=== PATIENT | female | born 1950 | race Hispanic/Latino ===

== ENCOUNTER 2017-01-16 10:30 | Inpatient (IN) | payer MEDICARE ==
[2017-01-17] MEDS ORDERED: Midazolam HCl 5 mg/5 ml Vial ONE (06:29)
[2017-01-17] MEDS ORDERED: Fentanyl 100 MCG/2 ML VIAL ONE (06:29)
[2017-01-17] MEDS ORDERED: Dexmedetomidine 200 MCG/2 ML VIAL ONE (06:30)
[2017-01-17] MEDS ORDERED: Vecuronium 10 MG VIAL ONE ×2 (06:30→07:46)
[2017-01-17] MEDS ORDERED: Heparin 10,000 UNITS/1 ML VIAL 30,000 UNITS in Sodium Chloride 0.9% 1,000 ML FS SCH (07:00)
[2017-01-17] MEDS ORDERED: PHENYLEPHRINE-NS 100 MCG/ML 10 ML SYRINGE ONE (07:46)
[2017-01-17] MEDS ORDERED: Ondansetron HCl/PF 4 MG/2 ML Vial ONE (07:46)
[2017-01-17] MEDS ORDERED: Lidocaine 2% PF 10 ML AMP (For Epidural Use) ONE (07:46)
[2017-01-17] MEDS ORDERED: ePHEDrine/0.9% NaCl/PF SYRINGE 50 mg/10 ml ONE (07:46)
[2017-01-17] MEDS ORDERED: Propofol 200 MG/20 ML VIAL ONE (07:46)
[2017-01-17] MEDS ORDERED: Aminocaproic Acid 5 GM/20 ML VIAL ONE (08:18)
[2017-01-17] MEDS ORDERED: D5W ONE (08:18)
[2017-01-17] MEDS ORDERED: Papaverine 60 MG/2 ML VIAL ONE (08:18)
[2017-01-17] MEDS ORDERED: Mannitol 12.5 GM/50 ML ONE (08:18)
[2017-01-17] MEDS ORDERED: Calcium Chloride 1 GM/10 ML Abboject SYRINGE ONE (08:18)
[2017-01-17] MEDS ORDERED: Potassium Chloride 60 MEQ/30 ML VIAL ONE (08:18)
[2017-01-17] MEDS ORDERED: DOPAMINE HCL ONE (08:18)
[2017-01-17] MEDS ORDERED: Heparin 30,000 units/30 ml VIAL ONE (08:18)
[2017-01-17] MEDS ORDERED: Nitroglycerin 50 MG/250 ML BOT ONE (08:18)
[2017-01-17] MEDS ORDERED: Thrombin 5000 UNITS/5 ML VIAL ONE (08:18)
[2017-01-17] MEDS ORDERED: Lidocaine 2% PF 100 mg/5 ml Syringe ONE (08:18)
[2017-01-17] MEDS ORDERED: Magnesium 5 GM/10 ML VIAL ONE (08:18)
[2017-01-17] MEDS ORDERED: Sodium Bicarb 50 MEQ/50 ML VIAL ONE (08:18)
[2017-01-17] MEDS ORDERED: Cardioplegic Soln 1,000 ML BAG ONE (08:18)
[2017-01-17] MEDS ORDERED: Protamine Sulfate 50 MG/5 ML VIAL ONE (08:18)
[2017-01-17] MEDS ORDERED: Heparin 5,000 UNITS/ML VIAL ONE (08:18)
[2017-01-17] MEDS ORDERED: Nitroglycerin 50 MG/250 ML BOT 250 ML IVPB PRN (12:24)
[2017-01-17] MEDS ORDERED: Mag-Al 1200 mg/1200 mg/30 ML UDCUP PO PRN (12:24)
[2017-01-17] MEDS ORDERED: Bisacodyl 10 MG SUPP PR PRN (12:24)
[2017-01-17] MEDS ORDERED: DOPamine 400 MG/D5W 250 ML 250 ML IVPB PRN (12:24)
[2017-01-17] MEDS ORDERED: Morphine Sulfate 2 MG/ML SYRINGE SLOW IVP PRN (12:24)
[2017-01-17] MEDS ORDERED: Ondansetron HCl/PF 4 MG/2 ML Vial IVP PRN (12:24)
[2017-01-17] MEDS ORDERED: HYDROcodone/Acetaminophen 5/325 mg Tablet PO PRN (12:24)
[2017-01-17] MEDS ORDERED: Promethazine HCl 25 MG/ML VIAL IM PRN (12:24)
[2017-01-17] MEDS ORDERED: Potassium Chloride 20 MEQ/100 ML PREMIX BAG IVPB PRN (12:24)
[2017-01-17] MEDS ORDERED: Post-Op Insulin Drip Protocol IVPB ONE (12:24)
[2017-01-17] MEDS ORDERED: Hetastarch 6% 500 ML 500 ML IVPB PRN (12:24)
[2017-01-17] MEDS ORDERED: Fentanyl 100 MCG/2 ML VIAL SLOW IVP PRN (12:24)
[2017-01-17] MEDS ORDERED: Acetaminophen 325 MG TAB PO PRN (12:24)
[2017-01-17] MEDS ORDERED: Bisacodyl 5 MG TAB PO PRN (12:24)
[2017-01-17] MEDS ORDERED: Norepinephrine 8 MG/0.9% NS 250 ML IVPB PRN (12:24)
[2017-01-17] MEDS ORDERED: Guaifenesin DM 100-10/5 ML UDCUP PO PRN (12:24)
[2017-01-17] MEDS ORDERED: Dextrose 5% in Water 1,000 ML IV PRN (12:52)
[2017-01-17] MEDS ORDERED: Insulin Regular 300 UNITS/3 ML VIAL SC PRN (12:52)
[2017-01-17] MEDS ORDERED: Dextrose 50% Abboject 50 ML SYRINGE SLOW IVP PRN (12:52)
--- NOTE | 2017-01-17 13:06 | OP ---
DATE OF PROCEDURE: 01/17/2017 PREOPERATIVE DIAGNOSES: 1. Coronary artery disease. 2. Paroxysmal atrial fibrillation. PROCEDURE: Coronary bypass graft x5, left internal mammary artery as a sequential graft to the LAD, diagonal, saphenous vein graft to a 2 mm ramus, 1.5 mm left PDA, 1.25 mm distal circumflex, epicard ial maze and left atrial appendage ligation. SURGEON: Dr. Taz Webb SENIOR EXECUTIVE COMPENSATION ANALYST: Dr. Juan Jose Bowie TRANSFUSION: None. PROCEDURE IN DETAIL: After adequate anesthesia had been obtained, I performed a median sternotomy e ntering the right pleura with a saw. Dr. Bowie began an endovascular vein harvest of the left great er saphenous vein, but converted this to an open procedure. Following left internal mammary artery harvested the patient was heparinized, the mammary divided distally and passed posterior to the thym us gland. It was a nice quality mammary artery. Following aortic cannulation above the pericardial reflection due to very short aorta the right atrium was cannulated and cardiopulmonary bypass was i nstituted. Vessels were inspected for grafting. The aorta was cross-clamped and a liter of del Nid o cardioplegic solution given. Using the [employer] maze device, the right superior and inferior pul monary vein and left-sided pulmonary veins were each treated on 2 occasions. Base of the left atria l appendage treated once and then the left atrium oversewn with a double layer 4-0 Prolene suture. Following this, the left PDA was opened and anastomosis with saphenous vein completed. The next was the ramus and finally the distal circumflex. The MARROQUIN was then anastomosed in a [id number] fashi on to a 1-1.2-5 mm diagonal. The LAD at the origin of this diagonal was heavily calcified or would have been a better target. Distally, the LAD was opened and an end-to-side sequential anastomosis c ompleted. There was no bleeding at this point and the cross-clamp was removed and the partial occlu ding clamp placed, and the left PDA vein graft and ramus graft were anastomosed to the aortic root, marked with rings. To the site of the left PDA vein graft the distal circumflex vein graft was anas tomosed at about the mid a right atrial level. Following this, vessels were inspected for bleeding and there was brisk bleeding at this point from the MARROQUIN to the diagonal anastomosis. The aorta was recross-clamped, 300 mL of cardioplegic solution was given and 7-0 Prolene suture was used to repai r the leak in the distal aspect of the anastomosis between the MARROQUIN and the diagonal. Following com pletion of this, the crossclamp was removed. Temporary atrial and ventricular pacing wires placed. The patient was weaned from cardiopulmonary bypass, cannulas were removed, and protamine given syst emically. A left femoral arterial line was placed. Following good hemostasis, mediastinal and bila teral chest drains were placed. The sternum was reapproximated with #7 interrupted wire and subcuta neous tissue and skin were closed in layers.
[2017-01-17 13:18] LABS: PTT 29.3 SEC (22.9-36.1); Prothrombin Time 16.2 SEC (12.0-14.7)
[2017-01-17 13:20] LABS: #Eosinphils 0.1 thou/uL (0.0-0.7); #Lymphocytes 0.9 thou/uL (1.20-3.40); #Neutrophils 16.9 thou/uL (1.40-6.50); %Basophils 0.1 % (0.0-1.0); %Eosinophils 0.3 % (0.0-10.0); %Lymphocytes 4.9 % (21.0-51.0); %Monocytes 5.3 % (0.0-10.0); Hematocrit 33.4 % (36.0-47.0); Mean Platelet Volume 9.9 fL (7.4-10.4); Red Blood Cell (RBC) Count 3.69 mill/uL (4.20-5.40); White Blood Cell (WBC) Count 18.9 thou/uL (4.8-10.8)
[2017-01-17 13:33] LABS: Mechanical Tidal Volume 550 ml; Mode SIMV.PSV; Modified Allen's Test NOT DONE; Oxyhemoglobin 95.4 % (94.0-97.0); Pressure Support 10 cmH2O; Sodium 141 mmol/L (135-148); Vent YES
[2017-01-17] MEDS: Sodium Chloride 0.9% 1,000 ML IV SCH (13:38)
[2017-01-17 13:40] LABS: Anion Gap 12 mmol/L (10-20); BUN (Urea Nitrogen) 17 mg/dL (9.8-20.1); Calc. Creatinine Clearance 83 mL/min (70-130); Calcium 8.6 mg/dL (7.8-10.44); Carbon Dioxide 22 mmol/L (23-31); Chloride 107 mmol/L (98-107); Estimated GFR-MDRD 57
--- NOTE | 2017-01-17 13:52 | RAD ---
RADIOGRAPH CHEST 1 VIEW: Date: 01/17/2017 Time: 1:07 p.m. HISTORY: A 66-year-old female status post open heart surgery. COMPARISON: 01/16/2017 FINDINGS: There are new sternotomy wires. An endotracheal tube has been placed, with the distal tip overlying the thoracic trachea. A left basilar chest tube projects inferior to the left hemidiaphragmatic sh adow. A right-sided central vascular catheter takes two loops overlying the right supraclavicular r egion, before descending a short distance, with the distal tip overlying the right upper mediastinum . Lung volumes are low. This is a supine image, which would be insensitive for pneumothorax detect ion. No consolidation or pulmonary edema identified. These are all new findings, compared to the p rior study. There is a vertically oriented midline catheter just to the left of the trachea, with t he distal tip overlying the mid portion of the cardiac shadow, approximately 4.5 to 5.5 cm superior to the expected location of the esophagogastric junction. This may be an NG tube. IMPRESSION: 1. Immediately status post open heart surgery with life support lines as mentioned above. 2. The right-sided central vascular catheter is looped over the supraclavicular region. 3. Questionable nasogastric tube distal tip at the lower esophagus. JN [] POS: OFF
[2017-01-17 18:57] LABS: Oxyhemoglobin 95.4 % (94.0-97.0); Sodium 142 mmol/L (135-148); Spontaneous Rate 16 min; Vent YES
[2017-01-17 18:58] LABS: Mode CPAP; PIP 19 cmH2O; Pressure Support 10 cmH2O
[2017-01-17 19:04] LABS: Hematocrit 35.5 % (36.0-47.0)
[2017-01-17] MEDS: Fentanyl 100 MCG/2 ML VIAL SLOW IVP PRN ×3 (19:18→23:06)
[2017-01-17] MEDS: Atorvastatin Calcium 20 MG TAB PO SCH (20:19)
[2017-01-17] MEDS: Famotidine/PF 20 mg/2ml Vial SLOW IVP SCH (20:56)
[2017-01-18] MEDS: Fentanyl 100 MCG/2 ML VIAL SLOW IVP PRN ×4 (01:08→18:19)
[2017-01-18] MEDS: Sodium Chloride 0.9% 1,000 ML IV SCH ×2 (03:09→18:15)
[2017-01-18 04:40] LABS: #Lymphocytes 0.6 thou/uL (1.20-3.40); #Monocytes 0.8 thou/uL (0.11-0.59); #Neutrophils 10.7 thou/uL (1.40-6.50); %Basophils 0.2 % (0.0-1.0); %Lymphocytes 5.3 % (21.0-51.0); %Monocytes 6.6 % (0.0-10.0); Hematocrit 29.6 % (36.0-47.0); Mean Platelet Volume 10.1 fL (7.4-10.4); Red Blood Cell (RBC) Count 3.19 mill/uL (4.20-5.40); White Blood Cell (WBC) Count 12.2 thou/uL (4.8-10.8)
[2017-01-18 05:11] LABS: Anion Gap 13 mmol/L (10-20); BUN (Urea Nitrogen) 15 mg/dL (9.8-20.1); Calc. Creatinine Clearance 66 mL/min (70-130); Calcium 8.5 mg/dL (7.8-10.44); Carbon Dioxide 22 mmol/L (23-31); Chloride 110 mmol/L (98-107); Estimated GFR-MDRD 46
[2017-01-18] MEDS: HYDROcodone/Acetaminophen 5/325 mg Tablet PO PRN ×4 (06:11→20:38)
--- NOTE | 2017-01-18 06:15 | EKG ---
Test Reason : POST CSBG Blood Pressure : / mmHG Vent. Rate : 098 BPM Atrial Rate : 098 BPM P-R Int : 146 ms QRS Dur : 092 ms QT Int : 374 ms P-R-T Axes : 046 058 058 degrees QTc Int : 477 ms Normal sinus rhythm ST abnormality, possible digitalis effect , can not R/O ischemic change Abnormal ECG When compared with ECG of 16-JAN-2017 11:47, (Unconfirmed) Vent. rate has increased BY 35 BPM QT has lengthened Confirmed by FIFI LOPEZ ([id number]) on 01/18/2017 6:15:14 AM Referred By: PAN Confirmed By:FIFI LOPEZ
--- NOTE | 2017-01-18 08:14 | RAD ---
PORTABLE CHEST ONE VIEW: Date: 01-18-17 Time: 4:08 a.m. History: Post open heart surgery. Comparison: Previous day. FINDINGS/IMPRESSION: Endotracheal and nasogastric tubes have been removed in the interim. Under lines and tubes are uncha nged in position. The right sided central venous catheter is looped over the subclavian region and i s unchanged in position. There are mild atelectatic changes in the lung bases. No pneumothoraces are seen. The heart size is stable. Changes of median sternotomy are again noted. POS: [facility]
[2017-01-18] MEDS ORDERED: FLU VACC TS2017-18 (>65YR) 0.5 ML SYRINGE IM ONE (09:00)
[2017-01-18] MEDS: Atorvastatin Calcium 20 MG TAB PO SCH ×2 (20:24→20:31)
[2017-01-18] MEDS: Famotidine/PF 20 mg/2ml Vial SLOW IVP SCH (20:24)
[2017-01-18] MEDS: Pravastatin Sodium 20 MG TAB PO SCH (21:14)
[2017-01-19] MEDS: HYDROcodone/Acetaminophen 5/325 mg Tablet PO PRN ×5 (04:02→22:23)
[2017-01-19] MEDS: Sodium Chloride 0.9% 1,000 ML IV SCH (04:03)
[2017-01-19 04:06] LABS: #Lymphocytes 1.1 thou/uL (1.20-3.40); #Monocytes 1.4 thou/uL (0.11-0.59); #Neutrophils 10.3 thou/uL (1.40-6.50); %Basophils 0.1 % (0.0-1.0); %Lymphocytes 8.8 % (21.0-51.0); %Monocytes 10.9 % (0.0-10.0); Hematocrit 25.7 % (36.0-47.0); Mean Platelet Volume 10.2 fL (7.4-10.4); Red Blood Cell (RBC) Count 2.77 mill/uL (4.20-5.40); White Blood Cell (WBC) Count 12.8 thou/uL (4.8-10.8)
[2017-01-19 04:22] LABS: Anion Gap 11 mmol/L (10-20); BUN (Urea Nitrogen) 23 mg/dL (9.8-20.1); Calc. Creatinine Clearance 58 mL/min (70-130); Calcium 8.5 mg/dL (7.8-10.44); Carbon Dioxide 24 mmol/L (23-31); Chloride 102 mmol/L (98-107); Estimated GFR-MDRD 38
[2017-01-19] MEDS ORDERED: Mineral Oil ENEMA PR PRN (06:34)
[2017-01-19] MEDS ORDERED: Guaifenesin DM 100-10/5 ML UDCUP PO PRN (06:34)
[2017-01-19] MEDS ORDERED: Nitroglycerin 0.4 MG TAB 1 EACH SL PRN (06:34)
[2017-01-19] MEDS ORDERED: Milk Of Magnesia 30 ML UDCUP PO PRN (06:34)
[2017-01-19] MEDS ORDERED: Bisacodyl 10 MG SUPP PR PRN (06:34)
[2017-01-19] MEDS ORDERED: Fentanyl 100 MCG/2 ML VIAL SLOW IVP PRN (06:34)
[2017-01-19] MEDS: Metoprolol Tartrate 25 MG TAB PO SCH ×2 (08:21→22:24)
[2017-01-19] MEDS: Famotidine 20 MG TAB PO SCH ×2 (08:21→22:16)
[2017-01-19] MEDS ORDERED: Aspirin 325 mg Enteric Coated Tablet PO SCH (09:00)
--- NOTE | 2017-01-19 10:14 | RAD ---
AP VIEW CHEST: HISTORY: Status post open heart surgery. DATE: 01/19/17. COMPARISON: Comparison is made to previous exam from 01/18/17. FINDINGS: AP view chest demonstrates uncoiling and removal of the previously visualized right subclavian centr al line. Sternotomy wires are seen. Left-sided chest tube is seen. Right-sided chest is also seen . IMPRESSION: Removal of knotted right subclavian central line. POS: [facility]
[2017-01-19] MEDS: Bisacodyl 5 MG TAB PO PRN (18:36)
[2017-01-19] MEDS: Pravastatin Sodium 20 MG TAB PO SCH (22:16)
[2017-01-20 05:41] LABS: #Lymphocytes 1.3 thou/uL (1.20-3.40); #Monocytes 1.1 thou/uL (0.11-0.59); %Basophils 0.2 % (0.0-1.0); %Eosinophils 0.3 % (0.0-10.0); %Monocytes 10.9 % (0.0-10.0); Mean Platelet Volume 10.1 fL (7.4-10.4); Red Blood Cell (RBC) Count 2.48 mill/uL (4.20-5.40); White Blood Cell (WBC) Count 10.4 thou/uL (4.8-10.8)
[2017-01-20 06:02] LABS: Anion Gap 11 mmol/L (10-20); BUN (Urea Nitrogen) 23 mg/dL (9.8-20.1); Calc. Creatinine Clearance 79 mL/min (70-130); Calcium 8.3 mg/dL (7.8-10.44); Carbon Dioxide 25 mmol/L (23-31); Chloride 98 mmol/L (98-107); Estimated GFR-MDRD 55
[2017-01-20] MEDS: HYDROcodone/Acetaminophen 5/325 mg Tablet PO PRN ×4 (07:57→20:34)
[2017-01-20] MEDS: Bisacodyl 5 MG TAB PO PRN (08:24)
[2017-01-20] MEDS: Famotidine 20 MG TAB PO SCH ×2 (08:25→20:33)
[2017-01-20] MEDS: Potassium Chloride 10 MEQ TAB PO SCH (08:25)
[2017-01-20] MEDS: Furosemide 40 MG TAB PO SCH ×2 (08:25→09:40)
[2017-01-20] MEDS ORDERED: Furosemide 40 MG TAB PO SCH ×2 (08:30→14:00)
[2017-01-20] MEDS: Metoprolol Tartrate 25 MG TAB PO SCH ×2 (09:40→20:33)
[2017-01-20] MEDS: Pravastatin Sodium 20 MG TAB PO SCH (20:33)
[2017-01-21 06:47] LABS: #Lymphocytes 1.2 thou/uL (1.20-3.40); #Monocytes 1.4 thou/uL (0.11-0.59); #Neutrophils 9.9 thou/uL (1.40-6.50); %Basophils 0.2 % (0.0-1.0); %Eosinophils 0.4 % (0.0-10.0); %Lymphocytes 9.6 % (21.0-51.0); %Monocytes 10.8 % (0.0-10.0); Mean Platelet Volume 10.3 fL (7.4-10.4); Red Blood Cell (RBC) Count 2.59 mill/uL (4.20-5.40); White Blood Cell (WBC) Count 12.5 thou/uL (4.8-10.8)
[2017-01-21 07:14] LABS: Anion Gap 11 mmol/L (10-20); BUN (Urea Nitrogen) 29 mg/dL (9.8-20.1); Calc. Creatinine Clearance 65 mL/min (70-130); Calcium 8.7 mg/dL (7.8-10.44); Carbon Dioxide 27 mmol/L (23-31); Chloride 96 mmol/L (98-107); Estimated GFR-MDRD 43
[2017-01-21] MEDS: HYDROcodone/Acetaminophen 5/325 mg Tablet PO PRN ×2 (07:19→20:35)
[2017-01-21] MEDS: Potassium Chloride 10 MEQ TAB PO SCH (08:00)
[2017-01-21] MEDS: Diltiazem HCl 125 MG, Admixture Fee 1 EACH in Sodium Chloride 0.9% 100 ML SLOW IVP SCH (08:29)
[2017-01-21] MEDS: Ondansetron HCl/PF 4 MG/2 ML Vial IVP PRN (11:28)
[2017-01-21] MEDS: Metoprolol Tartrate 25 MG TAB PO SCH ×2 (11:28→20:37)
[2017-01-21] MEDS: Famotidine 20 MG TAB PO SCH ×2 (11:28→20:38)
[2017-01-21] MEDS: Furosemide 40 MG TAB PO SCH (11:28)
[2017-01-21] MEDS ORDERED: Digoxin 0.5 MG/2 ML AMP SLOW IVP SCH (14:00)
--- NOTE | 2017-01-21 15:28 | CON ---
DATE OF CONSULTATION: 01/21/2017 DATE OF ADMISSION: 01/17/2017 CARDIOLOGY CONSULTATION INDICATION FOR CONSULTATION: A 66-year-old female, post bypass surgery has developed atrial fibrill ation with rapid ventricular response, and we were asked to see her for this. HISTORY OF PRESENT ILLNESS: This is a very unfortunate 66-year-old female who has had severe three- vessel coronary disease, has been seen in the past and treated by Dr. Quiroz. She underwent card iac catheterization last month and was found to have severe 3-vessel coronary artery disease. She u nderwent bypass surgery by Dr. Webb with 5-vessel bypass with MARROQUIN and sequential graft to the LAD diagonal from the left internal mammary artery. She also had saphenous vein graft to a ramus interm ediate branch, posterior descending artery, right coronary, and also distal circumflex. She also magana d the MAZE procedure and left atrial ligation during the procedure. She has done relatively well po stop and then developed atrial fibrillation with rapid ventricular response with heart rates in the 120s to 130s. She has anxiety and also felt that she had become somewhat anxious and most likely th is is just due to her atrial fibrillation. She is having some shortness of breath, but no pain asso ciated with this, she has her usual pain postoperatively. Prior to surgery, she had had episodes of atrial fibrillation for which she was on Eliquis and had also been treated by flecainide and had be en maintaining her sinus rhythm without any problem. She did undergo, I believe electrical cardiove rsion in the past. She also was taking Toprol as well as diltiazem prior to her surgical procedure for the atrial fibrillation. At this time, she remains in atrial fibrillation. She has been starte d on IV diltiazem and still has a heart rate in the 110s to 130s. We will need to further manage he r medications. PAST MEDICAL HISTORY: Significant for coronary artery disease as noted above with bypass surgery, a trial fibrillation. She had been on medications as well as anticoagulation with Eliquis. She also had history of hypertension. She has history of DVTs in the past. She has had a right carotid enda rterectomy. She has had a cholecystectomy. MEDICATIONS PRIOR TO ADMISSION: Included vitamin D3, pravastatin, Cardizem CD 240 mg a day, Nexium, flecainide 50 mg b.i.d., Toprol-XL 25 mg a half a tablet q.p.m. At this time, her medications incl ude p.r.n. medications as well as Pepcid, Lasix 40 mg a day. Pain medications in the form of hydroc odone/acetaminophen. She is on Lopressor 25 mg b.i.d. and Pravachol 20 mg at bedtime. ALLERGIES: She is allergic to NITROFURANTOIN and also states she is allergic to LIPITOR. FAMILY HISTORY: Noncontributory at this time. SOCIAL HISTORY: She is . She has children who are alive and well. She smoked in the past, but stopped many years ago, actually when she was very young. She has no history of alcohol use. REVIEW OF SYSTEMS: She had no new HEENT complaints. She had no visual changes, hearing loss, or ti nnitus. She does have false teeth. She has had some complaints of shortness of breath and I think she has some asthma. She actually notices some wheezing at times. She has a diagnosis of asthma in the past. She had no chest pain at this time and she did not notice palpitations, but did just fel t that she was anxious. ABDOMEN: She had no chronic nausea, vomiting or diarrhea. No complaint s such as dysuria, polyuria, or hematuria. MUSCULOSKELETAL: She has had no recent complaints. Johnie e discomfort at this time after saphenous vein graft retrieval. NEUROLOGIC: No history of seizures or syncope. PHYSICAL EXAMINATION: GENERAL: Reveals a well-developed, well-nourished female who is in no acute distress at this time. VITAL SIGNS: Blood pressure 98/59, heart rate in the 120s and is irregular, respiratory rate is any where between 12-18. She is afebrile. HEENT: Reveals the head to be normocephalic and atraumatic. She has a well healed surgical incisio n in the right carotid area. She has a very soft bruit there. Otherwise, there are no significant abnormality is noted. CHEST: She has decreased breath sounds throughout with bilateral wheezing. CARDIOVASCULAR: She has an irregularly irregular rhythm. There was no gross murmurs noted. She is tachycardic. ABDOMEN: Shows morbid obesity with positive bowel sounds. EXTREMITIES: Showed no clubbing or cyanosis. She does have minimal edema bilaterally. Pedal pulse s were decreased. NEUROLOGIC: The patient appears to be intact. She has no evidence of focal motor deficits. She magana s normal strength and tone. SKIN: Warm and dry. IMAGING: Her EKG shows atrial fibrillation with rapid ventricular response, but no acute ST segment changes were noted on the monitoring system. LABORATORY DATA: Shows creatinine of 1.25, potassium is 5.0. WBC is 12.5. Hemoglobin is 7.8. IMPRESSION AND PLAN: 1. Atrial fibrillation with rapid ventricular response, postoperative from bypass surgery. We will need to control the heart rate. She is on IV diltiazem. I will add digoxin and she is also on bet a-blockers. We may need to start some other oral antiarrhythmics such as sotalol and I would not wa nt to give her flecainide again due to history of coronary artery disease as well as her renal insuf ficiency. Will need to like to watch sotalol also with her mild renal insufficiency. We could opt to give her amiodarone or Multaq, but we will try to control the heart rate with diltiazem as well a s the digoxin at this time. 2. History of coronary artery disease and recent bypass surgery. She is still recovering and her i ncisions are all healing at this time and see the notes above for the grafts. 3. History of hypertension. This is under good control at this time. We will continue those medic ations at this time. 4. Bilateral wheezing. She may have underlying chronic obstructive pulmonary disease. We will nee d to consider nebulizer treatment. She is already getting some, I believe postoperatively. Will co ayah to monitor her today for better rate control. She may need to be placed back on her oral ant icoagulation. However, at this time she is taking aspirin and it is just the recent postop phase si nce she has had atrial ligation and with left atrial appendage ligation. She is actually at low ris k for any acute embolic phenomenon. Dr. Quiroz will resume her care when he returns tomorrow.
[2017-01-21] MEDS: Pravastatin Sodium 20 MG TAB PO SCH (20:36)
[2017-01-21] MEDS: Digoxin 0.5 MG/2 ML AMP SLOW IVP SCH (20:39)
[2017-01-21] MEDS: diphenhydrAMINE HCl 25 MG CAP PO PRN (21:40)
[2017-01-22] MEDS: Digoxin 0.5 MG/2 ML AMP SLOW IVP SCH (01:57)
[2017-01-22] MEDS: HYDROcodone/Acetaminophen 5/325 mg Tablet PO PRN ×4 (03:39→20:49)
[2017-01-22] MEDS: diphenhydrAMINE HCl 25 MG CAP PO PRN ×2 (03:43→20:49)
[2017-01-22] MEDS: Diltiazem HCl 125 MG, Admixture Fee 1 EACH in Sodium Chloride 0.9% 100 ML SLOW IVP SCH (05:47)
[2017-01-22 06:00] LABS: #Eosinphils 0.3 thou/uL (0.0-0.7); #Lymphocytes 1.4 thou/uL (1.20-3.40); #Monocytes 1.4 thou/uL (0.11-0.59); #Neutrophils 6.6 thou/uL (1.40-6.50); %Basophils 0.4 % (0.0-1.0); %Eosinophils 2.8 % (0.0-10.0); %Lymphocytes 14.9 % (21.0-51.0); %Monocytes 14.1 % (0.0-10.0); Hematocrit 23.6 % (36.0-47.0); Mean Platelet Volume 9.7 fL (7.4-10.4); Red Blood Cell (RBC) Count 2.54 mill/uL (4.20-5.40); White Blood Cell (WBC) Count 9.7 thou/uL (4.8-10.8)
[2017-01-22 06:13] LABS: Anion Gap 11 mmol/L (10-20); BUN (Urea Nitrogen) 29 mg/dL (9.8-20.1); Calc. Creatinine Clearance 67 mL/min (70-130); Calcium 8.8 mg/dL (7.8-10.44); Carbon Dioxide 30 mmol/L (23-31); Chloride 95 mmol/L (98-107); Estimated GFR-MDRD 44
[2017-01-22 08:24] LABS: Oxyhemoglobin 97.6 % (94.0-97.0); Sodium 139 mmol/L (135-148)
[2017-01-22 08:24] LABS: Oxyhemoglobin 97.8 % (94.0-97.0); Sodium 138 mmol/L (135-148)
[2017-01-22 08:24] LABS: Base Excess -2.6 mEq/L (0 (+/- 2.5)); O2 Content (venous) 10.4 VOL% (12.5-17.5); pH (venous) 7.296 (7.35-7.45)
[2017-01-22 08:24] LABS: Oxyhemoglobin 97.7 % (94.0-97.0); Sodium 140 mmol/L (135-148)
[2017-01-22 08:26] LABS: Oxyhemoglobin 97.4 % (94.0-97.0); Sodium 139 mmol/L (135-148)
[2017-01-22 08:27] LABS: Oxyhemoglobin 97.7 % (94.0-97.0); Sodium 138 mmol/L (135-148)
[2017-01-22 08:27] LABS: Oxyhemoglobin 97.7 % (94.0-97.0); Sodium 137 mmol/L (135-148)
[2017-01-22] MEDS: Digoxin 0.125 MG TAB PO SCH (08:40)
[2017-01-22] MEDS: Furosemide 40 MG TAB PO SCH (08:43)
[2017-01-22] MEDS: Famotidine 20 MG TAB PO SCH ×2 (08:43→20:48)
[2017-01-22] MEDS: Metoprolol Tartrate 25 MG TAB PO SCH ×2 (08:43→20:48)
[2017-01-22] MEDS: Enoxaparin Sodium 30 MG/0.3 ML SYRINGE SC SCH ×2 (08:44→20:48)
[2017-01-22 08:46] LABS: Mode OR ABG; Vent YES
[2017-01-22 08:47] LABS: Mode OR ABG; Vent YES
[2017-01-22 08:48] LABS: Mode OR ABG; Vent YES
[2017-01-22 08:49] LABS: Mode OR ABG; Vent YES
[2017-01-22 08:49] LABS: Mode OR ABG; Vent YES
[2017-01-22 08:50] LABS: Mode OR ABG; Vent YES
--- NOTE | 2017-01-22 16:13 | PDOC.CTH ---
<Sadie Delgado - Last Filed: 01/22/17 16:21> Cardiology Progress Note - Subjective The pt was seen and examined. No overnight events. No cardiac complaints. She has not exercised due to Afib with RVR since the procedure. She has not been wearing compression stockings for a few days according to the pt and family. She has had very small BM x1 since the procedure - Objective Vital Signs Temp Pulse Resp BP BP Pulse Ox 01/22/17 15:45 97.9 F 97 18 128/70 90 L 01/22/17 12:00 97.9 F 63 16 112/70 96 01/22/17 08:40 112 H 01/22/17 08:00 97.9 F 63 16 121/59 L 92 L Weight 213 lb 5 oz 01/21/17 01/22/17 01/23/17 06:59 06:59 06:59 Intake Total 1330 1750 Output Total 950 850 Balance 380 900 - Physical Examination General/Neuro: alert & oriented x3 Neck: no JVD present Lungs: CTA Heart: other: (Irregular) Abdomen: soft Extremities: other: (1+ non-pitting edema in her Lt ankle) - Telemetry Telemetry Rhythm: Afib 70-140s - Labs Result Diagrams: 01/22/17 05:12 01/22/17 05:12 - Assessment/Plan 1. S/p CABG x5 with MAZE and NICHOLAS ligation - on BBlocker, ASA, and Statin medication; 2. Afib with RVR - HR has been from 70-140s; on Diltiazem 5mg/h and Metoprolol; her Metoprolol was increased from 25mg BID to 37.5mg BID today by Dr. Webb 3. HTN - stable with current medication 4. Hx of DVT - on Lovenox BID; recommend to wear compression stockings for swelling MAR reviewed Review of Systems - Review of Systems Constitutional: reports: no symptoms reported EENTM: reports: no symptoms reported Respiratory: reports: no symptoms reported Cardiac (ROS): reports: no symptoms reported ABD/GI: reports: no symptoms reported : reports: no symptoms reported Musculoskeletal: reports: no symptoms reported Skin: reports: no symptoms reported <Kirill Velazco - Last Filed: 01/22/17 17:14> Cardiology Progress Note - Objective Vital Signs Temp Pulse Resp BP BP Pulse Ox 01/22/17 15:45 97.9 F 97 18 128/70 90 L 01/22/17 12:00 97.9 F 63 16 112/70 96 01/22/17 08:40 112 H 01/22/17 08:00 97.9 F 63 16 121/59 L 92 L Weight 213 lb 5 oz 01/21/17 01/22/17 01/23/17 06:59 06:59 06:59 Intake Total 1330 1750 Output Total 950 850 Balance 380 900 - Labs Result Diagrams: 01/22/17 05:12 01/22/17 05:12 - Assessment/Plan Pt. seen and eval. by me. She is still SOB and in Afib. The HR remains elevated at times. The betablocker was increased. She is also on digoxin. The increased HR my also be in part due to the anemia with a HGB. less than 8. She had a NICHOLAS ligation and thus will be at low risk for an acute thrombotic event. Continue to increase betablockers for rate control as tolerated. I agree with the A/P by the POT FILLER.
[2017-01-22] MEDS: Pravastatin Sodium 20 MG TAB PO SCH (20:49)
[2017-01-23] MEDS: diphenhydrAMINE HCl 25 MG CAP PO PRN ×2 (02:39→20:19)
[2017-01-23] MEDS: HYDROcodone/Acetaminophen 5/325 mg Tablet PO PRN ×4 (02:39→20:19)
[2017-01-23] MEDS: Diltiazem HCl 125 MG, Admixture Fee 1 EACH in Sodium Chloride 0.9% 100 ML SLOW IVP SCH (06:15)
[2017-01-23] MEDS: Famotidine 20 MG TAB PO SCH ×2 (09:20→20:18)
[2017-01-23] MEDS: Metoprolol Tartrate 25 MG TAB PO SCH ×2 (09:20→20:18)
[2017-01-23] MEDS: Enoxaparin Sodium 30 MG/0.3 ML SYRINGE SC SCH ×2 (09:20→20:17)
[2017-01-23] MEDS: Furosemide 40 MG TAB PO SCH (09:20)
[2017-01-23] MEDS: Digoxin 0.125 MG TAB PO SCH (09:20)
--- NOTE | 2017-01-23 19:03 | PRG ---
DATE OF SERVICE: 01/23/2017 SUBJECTIVE: Ms. Moctezuma has returned back to atrial fibrillation. She currently has no current sym ptoms. She has been placed on IV Cardizem. PHYSICAL EXAMINATION: VITAL SIGNS: Blood pressure 107/57, pulse 99, temperature 97.9. LUNGS: Clear to auscultation. CARDIAC: Irregular, irregular. ABDOMEN: Soft, nontender, nondistended. EXTREMITIES: No edema. PERTINENT CARDIAC MEDICATIONS: Include aspirin 81 q.a.m., Lovenox, metoprolol 50 b.i.d. IMPRESSION: 1. Severe coronary artery disease. 2. Status post bypass surgery. 3. Atrial fibrillation. RECOMMENDATIONS: 1. I will increase metoprolol to 75 one p.o. b.i.d. for better rate control. 2. Incentive spirometry. 3. Ambulation. 4. Continue aspirin and statin therapy.
[2017-01-23] MEDS: Pravastatin Sodium 20 MG TAB PO SCH (20:19)
[2017-01-24] MEDS: diphenhydrAMINE HCl 25 MG CAP PO PRN ×3 (04:31→20:17)
[2017-01-24] MEDS: HYDROcodone/Acetaminophen 5/325 mg Tablet PO PRN ×3 (04:31→20:17)
[2017-01-24 06:01] LABS: Anion Gap 12 mmol/L (10-20); BUN (Urea Nitrogen) 26 mg/dL (9.8-20.1); Calc. Creatinine Clearance 76 mL/min (70-130); Calcium 8.6 mg/dL (7.8-10.44); Carbon Dioxide 27 mmol/L (23-31); Chloride 95 mmol/L (98-107); Estimated GFR-MDRD 50
[2017-01-24 06:34] LABS: #Basophils 0.1 thou/uL (0.0-0.2); #Eosinphils 0.3 thou/uL (0.0-0.7); #Lymphocytes 1.6 thou/uL (1.20-3.40); #Neutrophils 4.7 thou/uL (1.40-6.50); %Basophils 0.7 % (0.0-1.0); %Eosinophils 3.8 % (0.0-10.0); %Lymphocytes 21.3 % (21.0-51.0); %Monocytes 12.9 % (0.0-10.0); Anisocytosis SLIGHT = 6-15 cells (100X) (0-5/hpf); Band 2 % (5-11); Hematocrit 23.4 % (36.0-47.0); Mean Platelet Volume 9.4 fL (7.4-10.4); Metamyelocyte 1 % (0-0); Neutrophil 49 % (42-75); Polychromasia SLIGHT = 2-3 cells (100X) (0-2/hpf); Reactive Lymphocytes 1 % (0-10); White Blood Cell (WBC) Count 7.7 thou/uL (4.8-10.8)
--- NOTE | 2017-01-24 09:36 | PDOC.CTH ---
Cardiology Progress Note - Subjective Feels better. No palpitations noted. - Objective Vital Signs Temp Pulse Resp BP Pulse Ox 01/24/17 04:00 97.8 F 109 H 20 115/56 L 97 01/23/17 23:59 97.8 F 65 16 103/58 L 92 L Weight 212 lb 8 oz 01/23/17 01/24/17 01/25/17 06:59 06:59 06:59 Intake Total 1285 1915 Output Total 300 450 Balance 985 1465 - Physical Examination General/Neuro: alert & oriented x3, NAD Neck: carotid US brisk, no JVD present Lungs: CTA, unlabored respirations Heart: other: (IRR) Abdomen: no HSM, NT/ND Extremities: + femoral B - Telemetry Telemetry Rhythm: afib - Labs Result Diagrams: 01/24/17 05:26 01/24/17 05:26 - Assessment/Plan 1. CAD 2. Afib 3. Anemia Increase BB to 75mg BID IS and ambulation On ASA and statin treatment Anemia recs per CV urgery
[2017-01-24] MEDS: Metoprolol Tartrate 25 MG TAB PO SCH ×2 (10:10→20:13)
[2017-01-24] MEDS: Enoxaparin Sodium 30 MG/0.3 ML SYRINGE SC SCH ×2 (10:10→20:12)
[2017-01-24] MEDS: Digoxin 0.125 MG TAB PO SCH (10:11)
[2017-01-24] MEDS: Furosemide 40 MG TAB PO SCH (10:12)
[2017-01-24] MEDS: Famotidine 20 MG TAB PO SCH ×2 (10:12→20:13)
[2017-01-24] MEDS: Bisacodyl 5 MG TAB PO PRN (10:13)
[2017-01-24] MEDS: Ondansetron HCl/PF 4 MG/2 ML Vial IVP PRN (12:18)
[2017-01-24] MEDS: Mag-Al 1200 mg/1200 mg/30 ML UDCUP PO PRN (20:12)
[2017-01-24] MEDS: Pravastatin Sodium 20 MG TAB PO SCH (20:13)
[2017-01-25] MEDS: HYDROcodone/Acetaminophen 5/325 mg Tablet PO PRN ×5 (00:17→22:07)
[2017-01-25] MEDS ORDERED: Metolazone 5 MG TAB PO SCH (07:45)
[2017-01-25] MEDS ORDERED: Sodium Chloride 0.9% 10 ML ONE (09:08)
[2017-01-25] MEDS: Famotidine 20 MG TAB PO SCH ×2 (09:27→22:06)
[2017-01-25] MEDS: Metoprolol Tartrate 25 MG TAB PO SCH (09:28)
[2017-01-25] MEDS: Furosemide 40 MG TAB PO SCH (09:28)
[2017-01-25] MEDS: Digoxin 0.125 MG TAB PO SCH (09:28)
[2017-01-25] MEDS: Enoxaparin Sodium 30 MG/0.3 ML SYRINGE SC SCH ×2 (09:29→22:08)
--- NOTE | 2017-01-25 12:18 | PDOC.CTH ---
Cardiology Progress Note - Subjective NO complaints. Upt o shower today. Increase HR noted with ambulation. Increase BB yesterday from 50mg BID to 75mg bid - Objective Vital Signs Temp Pulse Resp BP Pulse Ox 01/25/17 09:28 136 H 01/25/17 08:00 98.2 F 73 20 112/66 95 01/25/17 04:00 97.6 F 88 18 115/68 95 Weight 218 lb 01/24/17 01/25/17 01/26/17 06:59 06:59 06:59 Intake Total 1915 1605 Output Total 450 200 Balance 1465 1405 - Physical Examination General/Neuro: alert & oriented x3, NAD Neck: carotid US brisk, no JVD present Lungs: CTA, unlabored respirations Heart: other: (IRR) Abdomen: no HSM, NT/ND, soft Extremities: + femoral B - Telemetry Telemetry Rhythm: afib - Labs Result Diagrams: 01/24/17 05:26 01/24/17 05:26 - Assessment/Plan 1. pOst op afib 2. CAD s/p CABG Increasse metoprolol. Continue digoxin. Consider CV if HR continues to be elevated although only medication in this situation is amiodarone and pt reluctant to proceed with amiodarone given side effects (which I did discuss with pt)
[2017-01-25] MEDS: Mag-Al 1200 mg/1200 mg/30 ML UDCUP PO PRN (13:36)
[2017-01-25] MEDS: Diltiazem HCl 125 MG, Admixture Fee 1 EACH in Sodium Chloride 0.9% 100 ML SLOW IVP SCH (13:38)
[2017-01-25 14:27] VITALS: BMI 38.6
[2017-01-25] MEDS: Metoprolol Tartrate 100 MG TAB PO SCH (22:06)
[2017-01-25] MEDS: Pravastatin Sodium 20 MG TAB PO SCH (22:06)
[2017-01-26] MEDS: HYDROcodone/Acetaminophen 5/325 mg Tablet PO PRN ×2 (03:48→18:49)
[2017-01-26] MEDS: Apixaban 5 MG TAB PO SCH ×2 (09:11→20:41)
[2017-01-26] MEDS: Digoxin 0.125 MG TAB PO SCH (09:12)
[2017-01-26] MEDS: Metoprolol Tartrate 100 MG TAB PO SCH ×2 (09:13→20:42)
[2017-01-26] MEDS: Furosemide 40 MG TAB PO SCH (09:13)
[2017-01-26] MEDS: Famotidine 20 MG TAB PO SCH ×2 (09:14→20:39)
[2017-01-26] MEDS: Enoxaparin Sodium 30 MG/0.3 ML SYRINGE SC SCH ×2 (09:15→20:42)
--- NOTE | 2017-01-26 14:34 | PDOC.CTH ---
Cardiology Progress Note - Subjective Feels weak today. She has ambulated - Objective Vital Signs Temp Pulse Pulse Pulse Resp BP BP 01/26/17 11:51 97.4 F L 81 18 01/26/17 09:20 110 H 102 H 112/78 111/56 L 01/26/17 09:12 112 H 01/26/17 08:00 96.6 F L 112 H 18 01/26/17 04:00 97.5 F L 89 18 BP Pulse Ox Pulse Ox Pulse Ox 01/26/17 11:51 116/56 L 91 L 01/26/17 09:20 93 L 94 L 01/26/17 09:12 01/26/17 08:00 148/67 H 95 01/26/17 04:00 133/81 95 Admit Weight 198 lb 13.711 oz Weight 222 lb 01/25/17 01/26/17 01/27/17 06:59 06:59 06:59 Intake Total 1605 636 Output Total 200 150 Balance 1405 486 - Physical Examination General/Neuro: alert & oriented x3, NAD Neck: carotid US brisk, no JVD present Lungs: CTA, unlabored respirations Heart: PMI normal (irr), other: Abdomen: NT/ND Extremities: + femoral B - Telemetry Telemetry Rhythm: afib - Labs Result Diagrams: 01/24/17 05:26 01/24/17 05:26 - Assessment/Plan 1. pOst op afib 2. CAD s/p CABG 3. anemia Rate improved on imcead BB. Increase to 100mg bid. anemia per CV surgery Ambulate and IS On CV meds
[2017-01-26] MEDS: Diltiazem HCl 125 MG, Admixture Fee 1 EACH in Sodium Chloride 0.9% 100 ML SLOW IVP SCH (18:38)
[2017-01-26] MEDS: diphenhydrAMINE HCl 25 MG CAP PO PRN (20:39)
[2017-01-26] MEDS: Pravastatin Sodium 20 MG TAB PO SCH (20:39)
[2017-01-27] MEDS: HYDROcodone/Acetaminophen 5/325 mg Tablet PO PRN ×4 (00:13→18:36)
[2017-01-27 06:16] LABS: Hematocrit 27.3 % (36.0-47.0)
[2017-01-27] MEDS: Apixaban 5 MG TAB PO SCH ×2 (09:43→20:43)
[2017-01-27] MEDS: Furosemide 40 MG TAB PO SCH (09:43)
[2017-01-27] MEDS: Famotidine 20 MG TAB PO SCH ×2 (09:43→20:43)
[2017-01-27] MEDS: Digoxin 0.125 MG TAB PO SCH (09:43)
[2017-01-27] MEDS: Metoprolol Tartrate 100 MG TAB PO SCH ×2 (09:44→20:43)
[2017-01-27] MEDS: Diltiazem HCl 125 MG, Admixture Fee 1 EACH in Sodium Chloride 0.9% 100 ML SLOW IVP SCH (14:34)
[2017-01-27] MEDS: Pravastatin Sodium 20 MG TAB PO SCH (20:43)
[2017-01-27] MEDS: diphenhydrAMINE HCl 25 MG CAP PO PRN (20:46)
[2017-01-28] MEDS: HYDROcodone/Acetaminophen 5/325 mg Tablet PO PRN ×3 (01:33→18:00)
[2017-01-28] MEDS: Apixaban 5 MG TAB PO SCH ×2 (09:23→20:32)
[2017-01-28] MEDS: Metoprolol Tartrate 100 MG TAB PO SCH ×2 (09:23→20:32)
[2017-01-28] MEDS: Digoxin 0.125 MG TAB PO SCH (09:24)
[2017-01-28] MEDS: Famotidine 20 MG TAB PO SCH ×2 (09:24→20:32)
[2017-01-28] MEDS: Furosemide 40 MG TAB PO SCH (09:24)
[2017-01-28] MEDS: diphenhydrAMINE HCl 25 MG CAP PO PRN ×2 (13:22→20:40)
[2017-01-28] MEDS: Bisacodyl 5 MG TAB PO PRN (17:31)
[2017-01-28 19:02] LABS: Bilirubin Negative (Negative); Blood, Urine Small (Negative); Glucose, Urine (Dipstick) Negative (Negative); Ketone, Urine Negative (Negative); Nitrite Negative (Negative); Protein, Urine (Dipstick) Negative (Neg-Trace); Urobilinogen 0.2 mg/dL (0.2-1.0)
[2017-01-28 19:08] LABS: Bacteria/HPF None Seen HPF (None Seen); Hyaline Casts/LPF 0-3 HYALINE CAST LPF (0-3 Hyaline); Squamous Epithelial None Seen HPF (0-3); WBC/HPF 0-3 HPF (0-3)
[2017-01-28] MEDS ORDERED: Sodium Chloride 0.9% 10 ML ONE (19:49)
[2017-01-28] MEDS: Pravastatin Sodium 20 MG TAB PO SCH (20:32)
[2017-01-28] MEDS: Ondansetron HCl/PF 4 MG/2 ML Vial IVP PRN (20:34)
[2017-01-29] MEDS: HYDROcodone/Acetaminophen 5/325 mg Tablet PO PRN ×2 (01:51→21:05)
[2017-01-29 06:06] LABS: Hematocrit 25.8 % (36.0-47.0)
[2017-01-29] MEDS: Polyethylene Glycol 3350 17 GM Packet PO SCH (08:28)
[2017-01-29] MEDS: Famotidine 20 MG TAB PO SCH ×2 (08:29→21:02)
[2017-01-29] MEDS: Apixaban 5 MG TAB PO SCH ×2 (08:29→21:02)
[2017-01-29] MEDS: Metoprolol Tartrate 100 MG TAB PO SCH ×2 (08:30→21:02)
[2017-01-29] MEDS: Furosemide 40 MG TAB PO SCH (08:30)
[2017-01-29] MEDS: Digoxin 0.125 MG TAB PO SCH (08:31)
[2017-01-29] MEDS ORDERED: HYDROcodone/Acetaminophen 5/325 mg Tablet PO PRN (08:39)
[2017-01-29] MEDS ORDERED: Sodium Chloride 0.9% 500 ML IVPB SCH (13:00)
[2017-01-29] MEDS: diphenhydrAMINE HCl 25 MG CAP PO PRN ×2 (13:23→21:02)
--- NOTE | 2017-01-29 16:25 | PRG ---
DATE OF SERVICE: 01/29/2017 SUBJECTIVE: Today, Ms. Moctezuma states she is not feeling well, this is a consistent message over th e last several days. Her family although states she is improving. She is currently constipated. S he has been receiving hydrocodone for overall pain. She is currently on IV Cardizem. PHYSICAL EXAMINATION: VITAL SIGNS: Blood pressure 126/54, pulse 71, temperature afebrile. LUNGS: Clear to auscultation. HEART: Irregularly irregular. ABDOMEN: Soft, nontender, and nondistended. EXTREMITIES: No edema. IMPRESSION: 1. Coronary artery disease. 2. Status post bypass surgery. 3. Atrial fibrillation. RECOMMENDATIONS: Ms. Moctezuma appears to be improving. We will discontinue her Cardizem. We will d ecrease her hydrocodone. This may be why she is constipated and mildly nauseous. She will likely b enefit from inpatient rehabilitation, will need to be evaluated.
[2017-01-29] MEDS: Pravastatin Sodium 20 MG TAB PO SCH (21:02)
[2017-01-30] MEDS: HYDROcodone/Acetaminophen 5/325 mg Tablet PO PRN (01:50)
[2017-01-30] MEDS: Apixaban 5 MG TAB PO SCH ×2 (09:25→20:42)
[2017-01-30] MEDS: Furosemide 40 MG TAB PO SCH (09:25)
[2017-01-30] MEDS: Polyethylene Glycol 3350 17 GM Packet PO SCH (09:25)
[2017-01-30] MEDS: Digoxin 0.125 MG TAB PO SCH (09:25)
[2017-01-30] MEDS: Metoprolol Tartrate 100 MG TAB PO SCH ×2 (09:26→20:43)
[2017-01-30] MEDS: Famotidine 20 MG TAB PO SCH ×2 (09:26→20:42)
[2017-01-30] MEDS: Acetaminophen 325 MG TAB PO PRN ×2 (09:28→20:43)
--- NOTE | 2017-01-30 13:53 | PQF ---
CLINICAL DOCUMENTATION IMPROVEMENT CLARIFICATION FORM: ICD-10 Updated PLEASE DO AN ADDENDUM TO THE PROGRESS NOTE WITH ANY DOCUMENTATION UPDATES OR ADDITIONS AND CARRY THROUGH TO DC SUMMARY. THANK YOU. DATE: 01/30/17 ATTN: Dr. Quiroz Please exercise your independent, professional judgment in responding to the clarification form. Clinical indicators are provided on the bottom of this form for your review Please check appropriate box(s): [ ] Paroxysmal Atrial Fibrillation [ ] Persistent Atrial Fibrillation [ ] Chronic Atrial Fibrillation (includes permanent Atrial Fibrillation) [ ] Post-Operative Complication - Atrial Fibrillation [ ] Paroxysmal Atrial Fibrillation [ ] Persistent Atrial Fibrillation [ ] Other diagnosis [ ] Unable to determine For continuity of documentation, please document condition throughout progress notes and discharge summary. Thank You. CLINICAL INDICATORS - SIGNS / SYMPTOMS / LABS CARDIOLOGY CONSULT: 01/17 EKG - ATRIAL FIBRILLATION W/ RAPID VENTRICULAR RESPONSE ATRIAL FIBRILLATION W/ RVR. POSTOPERATIVE FROM BYPASS SURGERY. CARDIOLOGY PN 01/25-01/26: POST OP A FIB RISKS: CARDIOLOGY CONSULT 01/22: HX OF CAD W/ BYPASS SURGERY, ATRIAL FIB. ANTICOAGULATION W/ ELIQUIS. HX OF HTN. TREATMENTS: CPOE 01/21: CARDIZEM 125MG IV. STOPPED 01/28 CPOE 01/28: CARDIZEM CD PO DAILY 120MG CPOE 01/25: LOPRESSOR 100 MG PO BID (This form is maintained as a part of the permanent medical record) 2014 [employer]. All Rights Reserved Gracia Bill RN, BSN [email or web address] Office: [phone] [facility]
[2017-01-30] MEDS: Pravastatin Sodium 20 MG TAB PO SCH (20:42)
[2017-01-31] MEDS: Acetaminophen 325 MG TAB PO PRN ×2 (02:55→09:19)
[2017-01-31 04:28] VITALS: TEMP 97.8
[2017-01-31 05:29] LABS: Hematocrit 26.8 % (36.0-47.0)
[2017-01-31] MEDS: Apixaban 5 MG TAB PO SCH (09:19)
[2017-01-31] MEDS: Digoxin 0.125 MG TAB PO SCH (09:19)
[2017-01-31] MEDS: Furosemide 40 MG TAB PO SCH (09:20)
[2017-01-31] MEDS: Polyethylene Glycol 3350 17 GM Packet PO SCH (09:20)
[2017-01-31] MEDS: Famotidine 20 MG TAB PO SCH (09:20)
[2017-01-31] MEDS: Metoprolol Tartrate 100 MG TAB PO SCH (09:20)
[2017-01-31 11:00] VITALS: BP 119/78
--- NOTE | 2017-01-31 20:01 | PRG ---
DATE OF SERVICE: 01/31/2017 SUBJECTIVE: Ms. Moctezuma is doing very well. She has no recurrent complaints. She continues to inc rease her ambulation. OBJECTIVE: VITAL SIGNS: Heart rate 80, blood pressure 120/70 and temperature afebrile. LUNGS: Clear to auscultation. HEART: Irregularly regular. ABDOMEN: Soft, nontender and nondistended. EXTREMITY: No edema. IMPRESSION: 1. Coronary artery disease. 2. Status post bypass surgery. 3. Atrial fibrillation. RECOMMENDATIONS: 1. Continue anticoagulation therapy. 2. Continue beta-davey therapy and calcium channel blockade. 3. Follow with in one week.
== END 2017-01-31 14:25 | disposition home or self-care (01) | DRG 229 ==
LOC: SURG A 01-17 05:43 → CCU 01-17 09:51 → 2NO 01-19 10:01
PROVIDERS: ADMIT Thoracic Surgery (Cardiothoracic Vascular Surgery); ATTEND Thoracic Surgery (Cardiothoracic Vascular Surgery)
PROC: 02110Z9 Bypass Coronary Artery, Two Arteries from Left Internal Mammary, Open Approach (ICD-10-PCS; principal; 2017-01-17)
PROC: 02580ZZ Destruction of Conduction Mechanism, Open Approach (ICD-10-PCS; 2017-01-17)
PROC: 021209W Bypass Coronary Artery, Three Arteries from Aorta with Autologous Venous Tissue, Open Approach (ICD-10-PCS; 2017-01-17)
PROC: 06BQ0ZZ Excision of Left Saphenous Vein, Open Approach (ICD-10-PCS; 2017-01-17)
PROC: 02L70ZK Occlusion of Left Atrial Appendage, Open Approach (ICD-10-PCS; 2017-01-17)
PROC: 5A1221Z Performance of Cardiac Output, Continuous (ICD-10-PCS; 2017-01-17)
PROC: 5A1223Z Performance of Cardiac Pacing, Continuous (ICD-10-PCS; 2017-01-17)
DX: I25.110 Atherosclerotic heart disease of native coronary artery with unstable angina pectoris (principal); I48.0 Paroxysmal atrial fibrillation; J44.9 Chronic obstructive pulmonary disease, unspecified; F41.9 Anxiety disorder, unspecified; Z86.718 Personal history of other venous thrombosis and embolism; Z79.01 Long term (current) use of anticoagulants; I10 Essential (primary) hypertension; K59.00 Constipation, unspecified; E78.2 Mixed hyperlipidemia; D64.9 Anemia, unspecified; N28.9 Disorder of kidney and ureter, unspecified; Z87.891 Personal history of nicotine dependence; Z86.79 Personal history of other diseases of the circulatory system
CPT/HCPCS: 36415; 36416; 36430; 71010; 80048; 81001; 82565; 82805; 85014; 85018; 85025; 85049; 85610; 85730; 86850; 86900; 86901; 88184; 88305; 88307; 93005; 93010; 93798; 94002; 94150; 94640; A4216; G8978-GP-CI; G8979-GP-CI; G8980-GP-CI; G8987-GO-CJ; G8988-GO-CI; J1160; J1265; J1642; J1644; J1650; J1815; J2001; J2150; J2250; J2405; J2440; J2704; J2720; J3010; J3370; J3475; J3480; J7050; J7620; P9045; S0017; S0028

== ENCOUNTER 2017-01-16 10:55 | Outpatient (CLI) | payer MEDICARE ==
[2017-01-16 13:37] LABS: Hematocrit 38.8 % (36.0-47.0); Mean Platelet Volume 10.1 fL (7.4-10.4); Red Blood Cell (RBC) Count 4.29 mill/uL (4.20-5.40); White Blood Cell (WBC) Count 7.2 thou/uL (4.8-10.8)
[2017-01-16 13:52] LABS: Anion Gap 15 mmol/L (10-20); BUN (Urea Nitrogen) 21 mg/dL (9.8-20.1); Calc. Creatinine Clearance 0 mL/min (70-130); Calcium 10.5 mg/dL (7.8-10.44); Carbon Dioxide 26 mmol/L (23-31); Chloride 99 mmol/L (98-107); Estimated GFR-MDRD 47
--- NOTE | 2017-01-16 14:34 | RAD ---
CHEST TWO VIEWS: History: Pre op. FINDINGS: The cardiac silhouette and pulmonary vasculature are unremarkable. Mediastinum is midline with aorti c calcification apparent. There is no lobar consolidation, pneumothorax or pleural fluid apparent. IMPRESSION: Atherosclerosis. POS: [facility]
--- NOTE | 2017-01-18 06:27 | EKG ---
Test Reason : PREOP Blood Pressure : / mmHG Vent. Rate : 063 BPM Atrial Rate : 063 BPM P-R Int : 160 ms QRS Dur : 086 ms QT Int : 384 ms P-R-T Axes : -04 054 014 degrees QTc Int : 392 ms Normal sinus rhythm Normal ECG When compared with ECG of 01-MAY-2016 09:25, Sinus rhythm has replaced Atrial fibrillation Nonspecific T wave abnormality no longer evident in Lateral leads QT has shortened Confirmed by FIFI LOPEZ ([id number]) on 01/18/2017 6:26:56 AM Referred By: NAVIN Confirmed By:FIFI LOPEZ
== END 2017-01-16 10:56 | disposition home or self-care (01) ==
LOC: LABBT 10:55
PROVIDERS: ATTEND Thoracic Surgery (Cardiothoracic Vascular Surgery)
DX: Z01.818 Encounter for other preprocedural examination (principal); I25.10 Atherosclerotic heart disease of native coronary artery without angina pectoris; I48.91 Unspecified atrial fibrillation
CPT/HCPCS: 71020; 80048; 85027; 93005; 93010

== ENCOUNTER 2017-02-27 05:50 | Day surgery (SDC) | payer MEDICARE ==
[2017-02-26 15:37] VITALS: BMI 35.5
[2017-02-27 06:45] LABS: #Basophils 0.1 thou/uL (0.0-0.2); #Eosinphils 0.3 thou/uL (0.0-0.7); #Lymphocytes 1.4 thou/uL (1.20-3.40); #Monocytes 0.9 thou/uL (0.11-0.59); #Neutrophils 5.5 thou/uL (1.40-6.50); %Basophils 0.9 % (0.0-1.0); %Eosinophils 3.3 % (0.0-10.0); %Lymphocytes 16.7 % (21.0-51.0); Hematocrit 31.6 % (36.0-47.0); Mean Platelet Volume 9.4 fL (7.4-10.4); Red Blood Cell (RBC) Count 3.72 mill/uL (4.20-5.40); White Blood Cell (WBC) Count 8.1 thou/uL (4.8-10.8)
[2017-02-27] MEDS ORDERED: Fentanyl 250 MCG/5 ML VIAL ONE (06:45)
[2017-02-27] MEDS ORDERED: Levofloxacin 500 mg/D5W 100 ml Premix Bag ONE (06:45)
[2017-02-27] MEDS ORDERED: Bupivacaine/Epinephrine 0.25% 30 ML VIAL ONE (07:02)
[2017-02-27 07:03] LABS: Anion Gap 16 mmol/L (10-20); BUN (Urea Nitrogen) 14 mg/dL (9.8-20.1); Calc. Creatinine Clearance 82 mL/min (70-130); Calcium 9.5 mg/dL (7.8-10.44); Carbon Dioxide 23 mmol/L (23-31); Chloride 101 mmol/L (98-107); Estimated GFR-MDRD 57
[2017-02-27] MEDS ORDERED: Ondansetron HCl/PF 4 MG/2 ML Vial ONE (07:32)
[2017-02-27] MEDS ORDERED: Ketorolac Tromethamine 30 MG/ML VIAL ONE (07:32)
[2017-02-27] MEDS ORDERED: Lidocaine 1% PF 5 ML VIAL ONE (07:32)
[2017-02-27] MEDS ORDERED: Propofol 200 MG/20 ML VIAL ONE (07:32)
[2017-02-27] MEDS ORDERED: PHENYLEPHRINE-NS 100 MCG/ML 10 ML SYRINGE ONE (07:32)
[2017-02-27] MEDS ORDERED: diphenhydrAMINE 50 MG/ML VIAL ONE (07:32)
--- NOTE | 2017-02-27 10:11 | OP ---
PREOPERATIVE DIAGNOSIS: Lymphocele left thigh. POSTOPERATIVE DIAGNOSIS: Lymphocele left thigh. PROCEDURE: The patient underwent LMA. ANESTHESIA: General. PROCEDURE IN DETAIL: An ultrasound was then used to investigate left leg. There was a cavity above the incision that had previously had some erythema, but then today did not appear to have any cellu litis. There was also another smaller cavity in the distal thigh at the site of the two distal thig h incisions. There had been no erythema in this region. The patient was prepped and draped and the more proximal thigh incision was incised, cavity immediately entered and had some white material in it, which was cultured. The wound was irrigated and packed. The patient tolerated the procedure w ell.
== END 2017-02-27 09:05 | disposition home or self-care (01) ==
LOC: SDC 05:50
PROVIDERS: ATTEND Thoracic Surgery (Cardiothoracic Vascular Surgery)
PROC: 0H9JXZX Drainage of Left Upper Leg Skin, External Approach, Diagnostic (ICD-10-PCS; principal; 2017-02-27)
DX: I89.8 Other specified noninfective disorders of lymphatic vessels and lymph nodes (principal); I10 Essential (primary) hypertension; E78.5 Hyperlipidemia, unspecified; K21.9 Gastro-esophageal reflux disease without esophagitis; I25.10 Atherosclerotic heart disease of native coronary artery without angina pectoris; I48.91 Unspecified atrial fibrillation; Z79.2 Long term (current) use of antibiotics; Z79.01 Long term (current) use of anticoagulants; Z79.82 Long term (current) use of aspirin; Z79.899 Other long term (current) drug therapy; Z88.8 Allergy status to other drugs, medicaments and biological substances; Z88.1 Allergy status to other antibiotic agents; Z91.011 Allergy to milk products; Z95.1 Presence of aortocoronary bypass graft; Z90.49 Acquired absence of other specified parts of digestive tract; Z98.890 Other specified postprocedural states
CPT/HCPCS: 36415; 80048; 85025; 87070; 87077; 87186; 87205; J1200; J1885; J1956; J2001; J2405; J2704; J3010

== ENCOUNTER 2017-04-27 10:20 | Outpatient (CLI) | payer MEDICARE | END 2017-04-27 10:21 | disposition home or self-care (01) | LOC: BICRAD 10:20 | PROVIDERS: ATTEND Family Medicine | DX: M25.561 Pain in right knee (principal); M25.571 Pain in right ankle and joints of right foot; R06.02 Shortness of breath; R05 Cough; M17.11 Unilateral primary osteoarthritis, right knee; M79.89 Other specified soft tissue disorders; I70.90 Unspecified atherosclerosis | CPT/HCPCS: 71046 ==

== ENCOUNTER 2017-07-19 06:14 | Day surgery (SDC) | payer MEDICARE ==
[2017-07-17 15:16] VITALS: BMI 33.5
[2017-07-19] MEDS ORDERED: Diprivan 20 ML ONE (08:20)
--- NOTE | 2017-07-19 09:38 | OP ---
DATE OF PROCEDURE: 07/19/2017 PROCEDURE: ESTRELLA. PREPROCEDURE DIAGNOSIS: Atrial fibrillation with previous history of oversewn appendage after bypass . POST-PROCEDURE DIAGNOSIS: No flow noted to the left atrial appendage. PROCEDURE IN DETAIL: The patient was consented for the procedure. I discussed the procedure in full detail with Ms. Moctezuma. The risks included, but are not limited to the following; damage to teeth, mouth, back of the throat, damage to esophagus in addition to aspiration pneumonia. All questions w ere answered. Conscious sedation performed with anesthesia. The probe passed easily into the esopha ashok. FINDINGS: Left atrial appendage well visualized. There was no flow present with left atrial appenda ge. IMPRESSION: No flow present in the left atrial appendage.
[2017-07-19] MEDS ORDERED: Hydrocortisone 1% Cream 30 GM TUBE ONE (10:09)
--- NOTE | 2017-07-19 13:04 | OP ---
PREOPERATIVE DIAGNOSIS: Atrial fibrillation. POSTOPERATIVE DIAGNOSIS: Sinus rhythm. PROCEDURE: Synchronized cardioversion. ANESTHESIA: Conscious sedation performed with propofol. Anesthesia present. Successful synchronized cardioversion performed x1 at 150 joules. IMPRESSION: Successful synchronized cardioversion x1.
[2017-07-19] MEDS ORDERED: Propofol 200 MG/20 ML VIAL ONE (15:43)
== END 2017-07-19 10:35 | disposition home or self-care (01) ==
LOC: SDC 06:14
PROVIDERS: ATTEND Internal Medicine Cardiovascular Disease
PROC: 5A2204Z Restoration of Cardiac Rhythm, Single (ICD-10-PCS; principal; 2017-07-19)
DX: I48.1 Persistent atrial fibrillation (principal); I10 Essential (primary) hypertension; Z79.82 Long term (current) use of aspirin; Z79.01 Long term (current) use of anticoagulants; Z79.899 Other long term (current) drug therapy; Z88.8 Allergy status to other drugs, medicaments and biological substances; Z91.011 Allergy to milk products
CPT/HCPCS: 92960; 93312; J2704

== ENCOUNTER 2017-10-26 18:54 | Inpatient (IN) | payer MEDICARE, MEDICAID ==
[2017-10-26] MEDS ORDERED: Ondansetron ODT 8 MG TAB ONE (19:17)
[2017-10-26 19:24] LABS: #Basophils 0.1 thou/uL (0.0-0.2); #Eosinphils 0.1 thou/uL (0.0-0.7); #Lymphocytes 1.3 thou/uL (1.20-3.40); #Monocytes 0.8 thou/uL (0.11-0.59); %Basophils 0.4 % (0.0-1.0); %Lymphocytes 10.8 % (21.0-51.0); %Monocytes 6.8 % (0.0-10.0); %Neutrophils 81.1 % (42.0-75.0); Hemoglobin 11.4 g/dL (12.0-16.0); Mean Corpuscular HGB CONC 33.9 g/dL (32.0-36.0); Mean Corpuscular Hemoglobin 27.9 pg (27.0-31.0); Mean Corpuscular Volume 82.2 fL (78.0-98.0); Mean Platelet Volume 9.9 fL (7.4-10.4); Platelet Count 266 thou/uL (130-400); RBC Distribution Width 16.3 % (11.5-14.5); Red Blood Cell (RBC) Count 4.09 mill/uL (4.20-5.40); White Blood Cell (WBC) Count 12.4 thou/uL (4.8-10.8)
--- NOTE | 2017-10-26 19:41 | RAD ---
AP VIEW CHEST: 10/26/17 HISTORY: Chest pain. AP view chest obtained on 10/26/17. COMPARISON: Comparison made to previous exam from 01/19/17. AP view chest demonstrates sternotomy wires seen. Mild cardiomegaly noted. No evidence of effusions, pneumonia or pneumothorax seen. IMPRESSION: Unremarkable AP view chest. POS: [facility]
[2017-10-26] MEDS ORDERED: Calcium Chloride 1 GM/10 ML Abboject SYRINGE ONE (19:45)
[2017-10-26 19:47] LABS: ALT (SGPT) 29 U/L (8-55); AST (SGOT) 36 U/L (5-34); Albumin 3.9 g/dL (3.4-4.8); Alkaline Phosphatase 227 U/L (40-150); Anion Gap 16 mmol/L (10-20); BUN (Urea Nitrogen) 40 mg/dL (9.8-20.1); Bilirubin, Total 0.4 mg/dL (0.2-1.2); Calc. Creatinine Clearance 0 mL/min (70-130); Calcium 9.7 mg/dL (7.8-10.44); Carbon Dioxide 26 mmol/L (23-31); Chloride 93 mmol/L (98-107); Estimated GFR-MDRD 17; Globulin 4.8 g/dL (2.4-3.5); Glucose 133 mg/dL (80-115); Lipase 44 U/L (8-78); Potassium 4.3 mmol/L (3.5-5.1); Protein, Total 8.7 g/dL (6.0-8.3); Sodium 131 mmol/L (136-145)
[2017-10-26] MEDS ORDERED: Calcium Gluc 4.6 MEQ/10 ML (100 MG/ML) ONE (19:48)
[2017-10-26 19:53] LABS: CKMB 1.2 ng/mL (0-6.6); Troponin I 0.011 ng/mL (< 0.028)
[2017-10-26] MEDS ORDERED: Atropine Sulfate 1 mg/10 ml Syringe ONE (20:37)
--- NOTE | 2017-10-26 20:47 | ULT ---
RIGHT UPPER QUADRANT ULTRASOUND 10/26/17 HISTORY: Abdominal pain, elevated LFTs. Multiple longitudinal and transverse images of the right upper quadrant of the abdomen is obtained us ing a multihertz curvilinear transducer. Real time images as well as color flow images obtained. Images demonstrate the liver to be unremarkable. No evidence of intrahepatic biliary dilatation is seen. The gallbladder has been surgically removed. The common bile duct has a diameter of 10 mm. In a patie nt prior to cholecystectomy, this would be abnormal; however, in a postcholecystectomy patient, this may represent physiologic reservoir of the bile and definitively is not abnormal. The visualized portions of the pancreas is unremarkable. The right kidney is unremarkable with no evidence of hydronephrosis or masses. IMPRESSION: Common bile duct dilatation; however, this may be a normal physiologic finding in this patient. No ot her significant abnormality seen. POS: [facility]
--- NOTE | 2017-10-26 21:42 | CT ---
NONCONTRAST ENHANCED CT IMAGES OF THE ABDOMEN AND PELVIS 10/26/17 HISTORY: Patient complaining of abdominal pain beginning this afternoon. Noncontrast enhanced CT images of the abdomen and pelvis demonstrates the lung bases to be unremarkab le. No evidence of free intraperitoneal air seen. The liver and spleen are unremarkable. The gallbladder has been surgically removed. The pancreas is u nremarkable. Adrenal glands unremarkable. No evidence of renal masses or lesions seen. Atherosclerotic calcification of the abdominal aorta and renal arteries seen. Multilevel severe lumbar degenerative changes seen. No dilated loops of small bowel seen. Normal appendix is seen. Extensive colonic diverticulosis is seen especially in the descending and sigmoid colon. There is an area of calcification in the right pelvis seen on axial image #74 adjacent to loops of ileum. This ma y represent area of chronic calcification of unknown clinical significance. No evidence of surroundin g inflammatory changes suggesting that this is an acute lesion. Unfortunately, previous old compariso n study is not available to determine whether this lesion was previously present. IMPRESSION: No definite evidence of acute intra-abdominal pathology. There is an area of calcification in the rig ht pelvis of unknown clinical significance which may represent chronic area of calcification. No acut e intra-abdominal or pelvic lesion seen. No evidence of hydronephrosis seen. Additional areas of hype rdensity also seen in the posterior aspect of the right hepatic lobe and inferior to the inferior tip of the liver in the peritoneal cavity. These areas of density were present on previous comparison CT A and I suspect may be a similar process to what is seen in the pelvis. These areas were present on a previous CTA which did not include the pelvis dated 12/13/15. POS: [facility]
[2017-10-26] MEDS ORDERED: Acetaminophen 325 MG TAB PO PRN (22:41)
[2017-10-26] MEDS ORDERED: Sodium Chloride 0.9% 1,000 ML IV SCH ×2 (22:45→23:15)
[2017-10-26] MEDS ORDERED: Pantoprazole 40 MG VIAL IVP SCH (23:15)
[2017-10-26 23:40] LABS: Hemoglobin 10.8 g/dL (12.0-16.0)
--- NOTE | 2017-10-27 01:15 | HP ---
CHIEF COMPLAINT: Abdominal pain, nausea, vomiting. HISTORY OF PRESENT ILLNESS: Patient is a very pleasant 67-year-old female with a history of coronary artery disease, status post bypass in 2017, history of atrial fibrillation, cardioverted x2, and hig h cholesterol, who presented to the hospital with complaints of abdominal pain, nausea, vomiting x1 d ay. Patient stated that she normally at times will have significant sharp abdominal pain followed by nausea, vomiting; however, today this morning she did not feel well, started having significant amou nt of sharp abdominal pain followed by nausea, vomiting. Patient stated that she did not eat out any where. She just has not been feeling well today. She denies any diarrhea. She did have some two so ft stools and she told me one of them appeared to be dark. Patient further states that since she was not feeling well and has had back pain. She has been taking three Advil gels yesterday and three to day. Patient denies any chest pain, chest discomfort, shortness of breath, any fevers or chills, any dizziness or any worsening lower extremity edema. Patient further states that in 06/2017, she under went cardioversion by Dr. Quiroz due to worsening lower extremity edema. Patient states that she was also cardioverted a year ago before her bypass. She states that she has not changed any of her r ecent medications. PAST MEDICAL HISTORY: History of coronary artery disease, hyperlipidemia, hypertension, atrial fibri llation on rate controlled and reflux, carotid artery disease. PAST SURGICAL HISTORY: She has had a cholecystectomy. She has also had open bypass in 2017. She magana s had a right knee laceration and a right CEA done on 05/01/2016. SOCIAL HISTORY: She denies any alcohol use, drug use, or smoking history. She states that she was a former smoker. ALLERGIES: She is allergic to NITROFURANTOIN and CRESTOR. MEDICATIONS: I went through the medication list with the family: Diltiazem 240 mg daily, Eliquis 5 mg b.i.d., carvedilol if indicated on 6.25 mg take 1 twice a day; however, in her medication list she stated it was 25 mg; however, patient states that she only takes 6.25 mg twice a day. Lasix 20 mg d aily, pravastatin 20 mg daily, Vitamin D 1000 units daily, losartan 50 mg daily. There is a question if she is taking amiodarone 200 mg daily; however, it was not put in her medication box and it was o n the list, but she did have a bottle of the amiodarone. FAMILY HISTORY: No family history of any significant heart disease. PHYSICAL EXAMINATION: VITAL SIGNS: Blood pressure 116/53, heart rate has been varying from 37 to 52, 18 respirations, 6 pa in, oxygen saturations 96% on room air. GENERAL: She is awake, alert, oriented x3. HEENT: Normocephalic, atraumatic. NECK: No lymphadenopathy noted. CARDIOVASCULAR: S1, S2 present. No murmurs, rubs, or gallops. LUNGS: Clear to auscultation. No rhonchi or wheezes noted. ABDOMEN: Soft. Bowel sounds are present x2. She does have significant pain upon palpation to her e pigastric area. Her right upper quadrant, no pain upon palpation below the umbilical cord. EXTREMITIES: No edema. Pedal pulses present x2. NEUROLOGIC: No focal deficits noted. SKIN: No lesions noted. LABORATORY DATA: Are the following, WBCs of 12.4, hemoglobin 11.4, hematocrit of 33.6, platelet of 2 66. Chemistry: Sodium of 131, potassium of 4.3, BUN of 40, creatinine of 2.80, glucose of 133. Her alkaline phosphatase is mildly elevated at 227, however, her AST is 36. She did have a CT abdomen a nd pelvis, which did not indicate some calcification and diverticulosis, but nothing significant on t he CT abdomen and pelvis. She also had a right upper quadrant ultrasound, which did not indicate chacho e mild common bile duct dilation; however, nothing significant. She also had a chest x-ray, which in dicated was unremarkable. ASSESSMENT AND PLAN: Patient is a very pleasant 67-year-old female who presents to the hospital with abdominal pain, nausea, vomiting x1 day. 1. Abdominal pain, nausea, vomiting. This could be differential could be viral gastritis versus gas tritis, since she has been taking Advil yesterday and today and she is on Eliquis. She has had a sta tus post cholecystectomy. She does have some mildly dilated common bile duct; however, physiology it appears to be nothing concerning. She does have some mild elevated liver enzymes. AST is mildly el evated and her alkaline phosphatase is mildly elevated. This could be from the nausea and vomiting. We will continue to monitor. We will start her on some Pepcid twice a day. I have instructed her n ot to take the Advil or Excedrin or any ibuprofen, NSAIDs while she is on the Eliquis. If patient's symptoms do not get improved, may consider GI for possible endoscopy. 2. Sinus bradycardia. Upon reviewing the patient's EKG, she is markedly bradycardic, which also cou ld be causing her to have the nausea and vomiting. At this time, I will hold off on her Cardizem. I will hold off on her Coreg and continue to monitor. I will consult Cardiology, since this is a sign ificantly new. Patient denies any feeling of palpitations or dizziness. This could most likely be s econdary to her medications. 3. Acute kidney injury. Patient's last creatinine is about ranging from 0.97 to 1.2. She is curren tly 2.80 appears to be mildly dehydrated. Her BUN is 40. We will start her on some gentle hydration also, we will hold her losartan. She appeared to be a little bit on the hypotensive side, and the f luids will help her dramatically. Her H&H is stable at 11.4; however, she is hemoconcentrated since normally patient's hemoglobin is in the range from 8-10 and she states that she has a history of bein g anemia; however, her MCV is normal. We will continue to monitor in terms of that. 4. In terms of her high cholesterol, we will continue her medications and her pravastatin, we will c ontinue her vitamin D. We will also hold her amiodarone until Cardiology has evaluated her. We will continue her Eliquis, as she has no signs of overt bleeding; however, she did have the dark stool. We will check her stool for occult blood. I might hold her Eliquis for tonight and get another CBC t o confirm that she is not anemic and we will continue to monitor.
[2017-10-27 01:16] VITALS: BMI 33.0
[2017-10-27 03:50] LABS: #Lymphocytes 1.3 thou/uL (1.20-3.40); #Monocytes 1.1 thou/uL (0.11-0.59); #Neutrophils 10.2 thou/uL (1.40-6.50); %Basophils 0.3 % (0.0-1.0); %Eosinophils 0.3 % (0.0-10.0); %Monocytes 8.9 % (0.0-10.0); %Neutrophils 80.5 % (42.0-75.0); Hemoglobin 10.3 g/dL (12.0-16.0); Mean Corpuscular HGB CONC 33.9 g/dL (32.0-36.0); Mean Corpuscular Volume 82.5 fL (78.0-98.0); Platelet Count 220 thou/uL (130-400); RBC Distribution Width 16.2 % (11.5-14.5); Red Blood Cell (RBC) Count 3.67 mill/uL (4.20-5.40); White Blood Cell (WBC) Count 12.7 thou/uL (4.8-10.8)
[2017-10-27 04:12] LABS: Anion Gap 15 mmol/L (10-20); BUN (Urea Nitrogen) 45 mg/dL (9.8-20.1); Calc. Creatinine Clearance 23 mL/min (70-130); Calcium 9.5 mg/dL (7.8-10.44); Carbon Dioxide 24 mmol/L (23-31); Chloride 95 mmol/L (98-107); Estimated GFR-MDRD 14; Glucose 112 mg/dL (80-115); Potassium 5.2 mmol/L (3.5-5.1); Sodium 129 mmol/L (136-145)
[2017-10-27] MEDS ORDERED: Atropine Sulfate 1 mg/10 ml Syringe IVP PRN (05:58)
[2017-10-27] MEDS ORDERED: Senokot 8.6 MG TAB PO PRN (07:07)
[2017-10-27] MEDS ORDERED: Diabetic Tussin 200 MG/10 ML UDCUP PO PRN (07:07)
[2017-10-27] MEDS ORDERED: hydrALAZINE 20 MG/ML VIAL SLOW IVP PRN (07:07)
[2017-10-27] MEDS ORDERED: HYDROcodone/Acetaminophen 5/325 mg Tablet PO PRN (07:07)
[2017-10-27] MEDS ORDERED: Milk Of Magnesia 30 ML UDCUP PO PRN (07:07)
[2017-10-27] MEDS ORDERED: Mag-Al 1200 mg/1200 mg/30 ML UDCUP PO PRN (07:07)
[2017-10-27] MEDS ORDERED: Chloraseptic Spray 180 ml Bottle PO PRN (07:07)
[2017-10-27] MEDS ORDERED: Eucerin (Mineral Oil/Petrolatum,White) 30 gm Jar TOP PRN (07:07)
[2017-10-27] MEDS ORDERED: Ondansetron HCl/PF 4 MG/2 ML Vial IVP PRN (07:07)
[2017-10-27] MEDS ORDERED: Temazepam 15 MG CAP PO PRN (07:07)
[2017-10-27] MEDS ORDERED: Artificial Tears 18 DROP/0.9 ML EA EYE PRN (07:07)
[2017-10-27] MEDS ORDERED: Ondansetron ODT 4 MG TAB PO PRN (07:07)
[2017-10-27] MEDS ORDERED: Sodium Chloride 0.65% Nasal 44 ML BOT EA NARE PRN (07:07)
[2017-10-27] MEDS ORDERED: Apixaban 5 MG TAB PO SCH (09:00)
[2017-10-27] MEDS ORDERED: Famotidine/PF 20 mg/2ml Vial SLOW IVP SCH (09:00)
[2017-10-27] MEDS: Prenatal Vitamin 1 TAB PO SCH (09:08)
[2017-10-27] MEDS: Pantoprazole 40 MG VIAL IVP SCH ×2 (09:08→21:36)
[2017-10-27] MEDS ORDERED: Loperamide HCl 2 MG CAP PO PRN (09:40)
[2017-10-27] MEDS ORDERED: Calcium Carbonate 500 MG ChewTAB PO PRN (09:40)
[2017-10-27] MEDS: Sodium Chloride 0.9% 1,000 ML IV SCH ×2 (09:57→21:35)
[2017-10-27] MEDS ORDERED: Amiodarone 200 MG TAB PO SCH (10:45)
--- NOTE | 2017-10-27 10:57 | PDOC.PN ---
- Subjective Encounter Start Date: 10/27/17 Encounter Start Time: 09:10 -: old records requested/rev pt has epigastric pain gets worse after food, no fever, has nausea, she was taking nsaids for her back pain, no leny now no longer bradycardia - Objective MAR Reviewed: Yes Vital Signs & Weight: Vital Signs (12 hours) Temp Pulse Resp BP Pulse Ox 10/27/17 08:00 97.5 F L 39 L 15 95 10/27/17 07:45 97.5 F L 39 L 15 127/42 L 95 10/27/17 04:29 97.2 F L 37 L 15 101/42 L 95 10/27/17 00:30 97.6 F 44 L 14 96/36 L 94 L Weight Weight 192 lb 12.8 oz I&O: 10/26/17 10/27/17 10/28/17 06:59 06:59 06:59 Intake Total 890 Output Total 0 Balance 890 Result Diagrams: 10/27/17 03:35 10/27/17 03:35 EKG Reviewed by me: Yes (nsr) Phys Exam - Physical Examination Constitutional: NAD HEENT: PERRLA, moist MMs, sclera anicteric Neck: no JVD, supple Respiratory: no wheezing, no rales, no rhonchi Cardiovascular: RRR, no significant murmur, no rub Gastrointestinal: soft, no distention, positive bowel sounds epigastric tenderness Musculoskeletal: no edema, pulses present Neurological: non-focal, normal sensation, moves all 4 limbs Lymphatic: no nodes Psychiatric: normal affect, A&O x 3 Skin: no rash, normal turgor Dx/Plan (1) Acute worsening of stage 3 chronic kidney disease Code(s): N18.3 - CHRONIC KIDNEY DISEASE, STAGE 3 (MODERATE) Status: Acute (2) Bradycardia, drug induced Code(s): R00.1 - BRADYCARDIA, UNSPECIFIED; T50.905A - ADVERSE EFFECT OF UNSP DRUG/MEDS/BIOL SUBST, INIT Status: Acute (3) Hyperkalemia Code(s): E87.5 - HYPERKALEMIA Status: Acute (4) Hyponatremia Code(s): E87.1 - HYPO-OSMOLALITY AND HYPONATREMIA Status: Acute (5) Hypertension Code(s): I10 - ESSENTIAL (PRIMARY) HYPERTENSION Status: Chronic (6) Obesity (BMI 30.0-34.9) Code(s): E66.9 - OBESITY, UNSPECIFIED Status: Chronic - Plan cont current plan of care, plan discussed w/ family, continue antibiotics * her bradycardia resolved now, likely due to her medication (amiodaron, cardizem, coreg) * continue IVF for elevated creatinine * will need GI consult for her epigastric abdominal pain * selected home medication reconciled * discussed with daughter bedside about plan * transfer to [facility] today * ambulate as tolerated * check fobt. Review of Systems - Review of Systems Constitutional: negative: fever, chills, sweats, weakness, malaise, other Eyes: negative: Pain, Vision Change, Conjunctivae Inflammation, Eyelid Inflammation, Redness, Other ENT: negative: Ear Pain, Ear Discharge, Nose Pain, Nose Discharge, Nose Congestion, Mouth Pain, Mouth Swelling, Throat Pain, Throat Swelling, Other Respiratory: negative: Cough, Dry, Shortness of Breath, Hemoptysis, SOB with Excertion, Pleuritic Pain, Sputum, Wheezing Cardiovascular: negative: chest pain, palpitations, orthopnea, paroxysmal nocturnal dyspnea, edema, light headedness, other Gastrointestinal: Nausea, Abdominal Pain. negative: Vomiting, Diarrhea, Constipation, Melena, Hematochezia, Other Genitourinary: negative: Dysuria, Frequency, Incontinence, Hematuria, Retention , Other Musculoskeletal: negative: Neck Pain, Shoulder Pain, Arm Pain, Back Pain, Hand Pain, Leg Pain, Foot Pain, Other Skin: negative: Rash, Lesions, Saravanan, Bruising, Other - Medications/Allergies Allergies/Adverse Reactions: Allergies Allergy/AdvReac Type Severity Reaction Status Date / Time nitrofurantoin Allergy Intermediate LEGS Verified 10/27/17 01:03 SWELLING atorvastatin [From Lipitor] Allergy Verified 10/27/17 01:03 lactose Allergy Verified 10/27/17 01:03 Medications: Current Medications Acetaminophen (Tylenol) 650 mg PO Q4H PRN PRN Reason: Headache/Fever or Pain Hydrocodone Bitart/Acetaminophen (Vivian 5/325) 1 tab PO Q4H PRN PRN Reason: Moderate Pain (4-6) Al Hydroxide/Mg Hydroxide (Maalox) 15 ml PO Q4H PRN PRN Reason: Heartburn or Indigestion Amiodarone HCl (Cordarone) 200 mg PO DAILY RICHA Amiodarone HCl (Cordarone) 200 mg PO NOW [facility] Stop: 10/27/17 11:30 Last Admin: 10/27/17 10:55 Dose: 200 mg Artificial Tears (Tears Naturale) 0 drop EA EYE PRN PRN PRN Reason: Dry Eyes Atropine Sulfate (Atropine) 0.5 mg IVP ONE PRN PRN Reason: SYMPTOMATIC BRADYCARDIA Stop: 10/27/17 23:59 Calcium Carbonate (Tums) 1,000 mg PO Q4H PRN PRN Reason: Heartburn or Indigestion Guaifenesin (Robitussin Sf) 200 mg PO Q4H PRN PRN Reason: Cough Hydralazine HCl (Apresoline) 10 mg SLOW IVP Q4H PRN PRN Reason: Systolic BP > 180 Sodium Chloride (Normal Saline 0.9%) 1,000 mls @ 125 mls/hr IV .Q8H [facility] Last Admin: 10/27/17 09:57 Dose: Not Given Loperamide HCl (Imodium) 2 mg PO PRN PRN PRN Reason: Diarrhea/Loose Stools Magnesium Hydroxide (Milk Of Magnesium) 30 ml PO DAILYPRN PRN PRN Reason: Constipation Mineral Oil/White Petrolatum (Eucerin Cream) 0 gm TOP BIDPRN PRN PRN Reason: Dry Skin Ondansetron HCl (Zofran Odt) 4 mg PO Q6H PRN PRN Reason: Nausea/Vomiting Last Admin: 10/27/17 09:08 Dose: 4 mg Ondansetron HCl (Zofran) 4 mg IVP Q6H PRN PRN Reason: Nausea/Vomiting Pantoprazole Sodium (Protonix) 40 mg IVP Q12HR [facility] Last Admin: 10/27/17 09:08 Dose: 40 mg Phenol (Chloraseptic [place] 180 Ml Bot) 0 ml PO PRN PRN PRN Reason: Sore Throat Pravastatin Sodium (Pravachol) 20 mg PO [facility] Multivit/Folic Acid/Iron ( Vitamin) 1 tab PO DAILY [facility] Last Admin: 10/27/17 09:08 Dose: 1 tab Senna (Senokot) 2 tab PO HSPRN PRN PRN Reason: Constipation Sodium Chloride (Flush - Normal Saline) 10 ml IVF Q12HR [facility] Last Admin: 10/27/17 09:09 Dose: 10 ml Sodium Chloride (Flush - Normal Saline) 10 ml IVF PRN PRN PRN Reason: Saline Flush Sodium Chloride ([place] Nasal [place] 0.65%) 0 ml EA NARE QIDPRN PRN PRN Reason: Nasal Congestion Temazepam (Restoril) 15 mg PO HSPRN PRN PRN Reason: Insomnia
--- NOTE | 2017-10-27 12:31 | CON ---
DATE OF CONSULTATION: 10/27/2017 CARDIOLOGY CONSULTATION NOTE INDICATION FOR CONSULTATION: A 67-year-old female with bradycardia with underlying atrial fibrillati on. HISTORY OF PRESENT ILLNESS: This is a very unfortunate 67-year-old female who underwent bypass surge ry in 01/2017. She has had a history of atrial fibrillation and has required cardioversion x2. She has been placed on diltiazem, Coreg as well as amiodarone. She presented yesterday to the emergency room after having episodes of nausea, vomiting, and diarrhea. When she was in the emergency room, rachelle roberts was found to have bradycardia, heart rates in 30s and 40s with underlying atrial fibrillation. She also had acute renal insufficiency and is making urine and was felt to be somewhat dehydrated. She has been given IV fluids and is now starting to urinate again. She denied any chest pain or any sign ificant shortness of breath. She has been doing very well otherwise. She did bypass surgery and und ergone left atrial appendage ligation as well as a maze procedure. Her last cardioversion was in 2017. She has had no cardiac complaints until she started feeling ill. She does not feel the palpit ations when she has atrial fibrillation. She did feel fatigued and sleepy, but otherwise had no ches t discomfort associated with the atrial fibrillation. At this time, she remains stable. She has con verted back to sinus rhythm and has a heart rate in the 60s to 70s and has actually started to urinat e after she was hydrated with some fluids. PAST MEDICAL HISTORY: Significant for atrial fibrillation with cardioversion in the past. She has h ad bypass surgery, 5-vessel bypass with a MARROQUIN to left anterior descending artery to diagonal branch, saphenous vein graft to the ramus and PDA as well as circumflex. She has had a right carotid endart erectomy and cholecystectomy. SOCIAL HISTORY: She smoked in the past and has stopped smoking. Her family members are alive and we ll. FAMILY HISTORY: Noncontributory. ALLERGIES: She is allergic to CRESTOR and NITROFURANTOIN. REVIEW OF SYSTEMS: She complains of back pain and some shortness of breath. She has had some proble ms with the hip pains. She complains of nausea and vomiting. Otherwise, her 12-point review of syst ems unremarkable. PHYSICAL EXAMINATION: GENERAL: Reveals well-developed and well-nourished female. VITAL SIGNS: Blood pressure 122/42, heart rate in the 40s earlier, but now has converted to sinus rh ythm in the 60s. She is afebrile. O2 saturation is 95%. HEENT: Shows head to be normocephalic and atraumatic. She has a well-healed surgical incision of th e right carotid area after carotid endarterectomy. She has a right carotid bruit. CHEST: Clear to auscultation without rales, rhonchi or wheezing. CARDIOVASCULAR: Exam at this time reveals regular rate and rhythm, normal S1, S2. There is no S3, S 4. There were no significant murmurs, heaves, thrills, bruits or rubs. She has a well-healed midlin e surgical incision after median sternotomy. ABDOMEN: Soft, somewhat mild tenderness, but positive bowel sounds are present. EXTREMITIES: Show no clubbing, cyanosis or edema. Pedal pulses are present. She has well healed velarde rgical incisions. NEUROLOGIC: She appears to be fully intact without any evidence of focal motor deficits. SKIN: Warm and dry. LABORATORY DATA: Shows hemoglobin of 12.7, hemoglobin is 10.3, WBC of 12.7. Sodium is low at 129, p otassium 5.2, BUN was 45 with creatinine 3.24. LABORATORY DATA: Her EKG shows a normal sinus rhythm. Occasionally she does have a bradycardia. Rachelle roberts does have what appears to be some sinus arrhythmia that time and at that time she has what appears to be a junctional escape rhythm. IMPRESSION: 1. Atrial fibrillation with slow ventricular response with decreased dose of her diltiazem. We will hold this. At this time, we will continue Coreg and amiodarone. She may certainly appears to have underlying sick sinus syndrome and may eventually need to undergo pacemaker insertion. 2. Coronary artery disease. This appears to be stable at this time. Enzymes are negative and EKG d oes not show any evidence of ischemia. 3. History of bypass surgery, which is doing very well. She has well healed surgical incisions. 4. Hypercholesterolemia. We will continue her medications. 5. Peripheral vascular disease. She is status post right carotid endarterectomy and remains stable. At this time, we will continue to follow the patient with you. 6. Hyponatremia, most likely associated with her nausea, vomiting, and diarrhea. We will continue t o monitor this very carefully. 7. History of anemia. We will need to repeat this lab and see whether or not she has any further pr oblems with anemia. There is no source of bleeding noted at this time. 8. Hypertension, this is well controlled. We will continue same medications.
[2017-10-27 13:22] LABS: Bilirubin Negative (Negative); Blood, Urine Moderate (Negative); Clarity CLEAR (Clear); Glucose, Urine (Dipstick) Negative (Negative); Leukocyte Trace (Negative); Nitrite Negative (Negative); Protein, Urine (Dipstick) Trace mg/dL (Neg-Trace); Specific Gravity, Urine 1.006 (1.002-1.036); Urobilinogen 0.2 mg/dL (0.2-1.0); pH, Urine 6.5 (5.0-9.0)
[2017-10-27 13:24] LABS: Bacteria/HPF None Seen HPF (None Seen); Hyaline Casts/LPF 0-3 HYALINE CAST LPF (0-3 Hyaline); Squamous Epithelial 0-3 HPF (0-3); WBC/HPF 0-3 HPF (0-3)
[2017-10-27 13:47] LABS: Creatinine, Urine 27.53 mg/dL (47-110)
[2017-10-27] MEDS: Pravastatin Sodium 20 MG TAB PO SCH (21:36)
[2017-10-28] MEDS: Sodium Chloride 0.9% 1,000 ML IV SCH ×3 (04:37→17:17)
[2017-10-28 05:35] LABS: #Eosinphils 0.3 thou/uL (0.0-0.7); #Lymphocytes 1.2 thou/uL (1.20-3.40); #Monocytes 0.9 thou/uL (0.11-0.59); #Neutrophils 7.5 thou/uL (1.40-6.50); %Basophils 0.4 % (0.0-1.0); %Lymphocytes 11.6 % (21.0-51.0); %Monocytes 8.7 % (0.0-10.0); %Neutrophils 76.3 % (42.0-75.0); Hemoglobin 10.7 g/dL (12.0-16.0); Mean Corpuscular HGB CONC 32.9 g/dL (32.0-36.0); Mean Corpuscular Hemoglobin 27.3 pg (27.0-31.0); Mean Corpuscular Volume 83.2 fL (78.0-98.0); Mean Platelet Volume 10.1 fL (7.4-10.4); Platelet Count 217 thou/uL (130-400); RBC Distribution Width 16.1 % (11.5-14.5); White Blood Cell (WBC) Count 9.8 thou/uL (4.8-10.8)
[2017-10-28 05:46] LABS: ALT (SGPT) 56 U/L (8-55); AST (SGOT) 58 U/L (5-34); Albumin 3.5 g/dL (3.4-4.8); Alkaline Phosphatase 317 U/L (40-150); Anion Gap 12 mmol/L (10-20); BUN (Urea Nitrogen) 31 mg/dL (9.8-20.1); Bilirubin, Total 0.6 mg/dL (0.2-1.2); Calc. Creatinine Clearance 38 mL/min (70-130); Carbon Dioxide 23 mmol/L (23-31); Chloride 103 mmol/L (98-107); Estimated GFR-MDRD 26; Globulin 4.2 g/dL (2.4-3.5); Glucose 93 mg/dL (80-115); Potassium 4.7 mmol/L (3.5-5.1); Protein, Total 7.7 g/dL (6.0-8.3); Sodium 133 mmol/L (136-145)
--- NOTE | 2017-10-28 09:02 | CON ---
DATE OF CONSULTATION: 10/27/2017 REFERRING PHYSICIAN: Prema Wahl M.D. REASON FOR CONSULTATION: Abdominal pain, nausea, and vomiting. HISTORY OF PRESENT ILLNESS: Ms. Brittany Moctezuma is a very pleasant 67-year-old female admitted to hospital with abdominal pain, nausea, and vomiting. The patient had an episode of acute abdominal pain yesterday evening and the pain was over the epigastric periumbilical area. The pain w as cramping and was very severe. She had nausea and vomiting. She had no fever. No diarrhea. She had similar episodes of abdominal pain a week ago and was self-limiting. The pain went away after a couple of hours. The patient has had no prior history of abdominal pain. The patient is status post laparoscopic cholecystectomy by Dr. Day more than 12 years ago. She tells me they took out multipl e gallstones at that time. The pain is sharp at the present time. However, she tells me the pain is anything like what she had when she had gallbladder stones. The patient has had no fever, no chills . The patient has no more abdominal pain today. She has history of chronic constipation and does us e MiraLax on a regular basis. The patient has no history of hematochezia or any melena. No history of any vomiting blood or coffee-ground material. The patient has no prior history of peptic ulcer. She does not have any dysphagia or odynophagia. There is no history of any painful swallowing or any heartburn, indigestion at the present time. The patient has no relevant history. ALLERGIES: NITROFURANTOIN and CRESTOR. SOCIAL HISTORY: The patient is a former smoker. Does not smoke anymore. Does not drink alcohol. N o history of drug abuse. MEDICAL ILLNESSES: 1. Coronary artery disease, status post coronary artery bypass graft in 2017. 2. Hyperlipidemia. 3. Hypertension. 4. Atrial fibrillation. 5. Acid reflux. 6. Carotid artery disease. PAST SURGICAL HISTORY: 1. Status post laparoscopic cholecystectomy. 2. Coronary artery bypass graft in 2017. 3. Right knee laceration. FAMILY HISTORY: Father had a light stroke and had heart disease. Mother had dementia and with dementia. No family history of any cancer. MEDICATIONS: List reviewed which includes Eliquis 5 mg twice a day, carvedilol 6.25 mg twice a day, diltiazem 240 once a day. She is also on Lasix, pravastatin, losartan. Other medicines include amio darone 200 mg daily. REVIEW OF SYSTEMS: Central nervous system: No history of TIA, no syncope, no chronic headache, no s eizure disorder. Respiratory system: No history of chronic cough, hemoptysis, dyspnea. Cardiovascu lar system: No chest pain, no palpitation, no dyspnea, orthopnea or PND. Gastrointestinal: Abdomin al pain, nausea, and vomiting . No hematochezia, no melena. Genitourinary: No dysuria, hematu liliana or frequent urination. Musculoskeletal, endocrine, hematological: Not known. Neuropsychiatry: Not known. PHYSICAL EXAMINATION: GENERAL: The patient appears very comfortable. She is awake, alert, and communicative. She is orie nted to time, place and person. VITAL SIGNS: Her pulse was around 44 yesterday, but today went up to around 66-67. Afebrile, blood pressure 162/64. HEENT: Conjunctivae clear. NECK: Supple. No adenitis or thyromegaly noted. CARDIOVASCULAR SYSTEM: First and second heart sounds normal. LUNGS: Clear to auscultation. ABDOMEN: Soft, abdomen is nondistended. Abdomen is nontender even on deep palpation. There is no o rganomegaly or masses. Bowel sounds normal. EXTREMITIES: Reveal no edema. LABORATORY DATA: From this morning, WBC 12,700, hemoglobin is 10.3 dropping from 11.4, hematocrit 30 .3, MCV 82.5, platelet count is 220,000, polymorphs 80, lymphocytes 10, monocytes 8. Serum chemistri es: Sodium 129, potassium 5.2, chloride 95, bicarbonate 24. BUN is 45, which was 40 yesterday. Cre atinine 3.24, glucose is 112, calcium 9.5, bilirubin 0.4, AST 36, ALT 29, alkaline phosphatase 227. Albumin is 3.9, hemoglobin 4.8, lipase is normal at 44. TSH is 4.24. CLINICAL IMPRESSION: 1. A 67-year-old female with abdominal pain, nausea, and vomiting resolved. She had similar episodes a week ago. The patient is status post cholecystectomy. An abdominal CAT scan, [facility] was negative for pathology. An abdominal sonogram, which again negative except for the dilated co mmon bile duct to 10 mm. It is felt to be due to previous cholecystectomy. 2. Abnormal liver function tests which is kind of cholestatic with alkaline phosphatase 227. I am n ot sure whether she has a common bile duct stone as her biliary stricture. However, CBD is about 10 mm, which could very well be due to previous cholecystectomy. 3. Atrial fibrillation. 4. Hypertension. 5. Hyperlipidemia. 6. Status post coronary artery bypass graft. 7. Colonoscopy two years ago and was told to be negative. RECOMMENDATIONS: 1. Follow up LFTs. 2. EGD tomorrow. If the EGD is negative, may consider an MRCP or possibly endosonography because of abdominal . This needs to be done to rule out any gallbladder stone.
--- NOTE | 2017-10-28 10:43 | PDOC.PN ---
- Subjective Encounter Start Date: 10/28/17 Encounter Start Time: 07:40 today feels better, no nausea/vomiting/abdominal pain, no fever - Objective MAR Reviewed: Yes Vital Signs & Weight: Vital Signs (12 hours) Temp Pulse Resp BP Pulse Ox 10/28/17 08:00 98.4 F 71 18 10/28/17 07:30 98.4 F 71 18 161/72 H 92 L 10/28/17 04:45 98.5 F 85 16 139/64 95 Weight Weight 192 lb 12.8 oz I&O: 10/27/17 10/28/17 10/29/17 06:59 06:59 06:59 Intake Total 890 150 Output Total 0 1700 Balance 890 -1550 Result Diagrams: 10/28/17 05:23 10/28/17 05:23 EKG Reviewed by me: Yes (afib) Phys Exam - Physical Examination Constitutional: NAD HEENT: PERRLA, moist MMs, sclera anicteric Neck: no JVD, supple Respiratory: no wheezing, no rales, no rhonchi Cardiovascular: no significant murmur, irregular Gastrointestinal: soft, non-tender, no distention, positive bowel sounds Musculoskeletal: no edema, pulses present Neurological: non-focal, normal sensation, moves all 4 limbs Lymphatic: no nodes Psychiatric: normal affect, A&O x 3 Skin: no rash, normal turgor Dx/Plan (1) Acute worsening of stage 3 chronic kidney disease Code(s): N18.3 - CHRONIC KIDNEY DISEASE, STAGE 3 (MODERATE) Status: Acute (2) Bradycardia, drug induced Code(s): R00.1 - BRADYCARDIA, UNSPECIFIED; T50.905A - ADVERSE EFFECT OF UNSP DRUG/MEDS/BIOL SUBST, INIT Status: Acute (3) Hyperkalemia Code(s): E87.5 - HYPERKALEMIA Status: Acute (4) Hyponatremia Code(s): E87.1 - HYPO-OSMOLALITY AND HYPONATREMIA Status: Acute (5) Hypertension Code(s): I10 - ESSENTIAL (PRIMARY) HYPERTENSION Status: Chronic (6) Obesity (BMI 30.0-34.9) Code(s): E66.9 - OBESITY, UNSPECIFIED Status: Chronic (7) Abnormal LFTs Code(s): R94.5 - ABNORMAL RESULTS OF LIVER FUNCTION STUDIES Status: Acute Comment: will need EUS after discharge (8) Acute kidney failure Status: Acute Comment: improving with IVF (9) Epigastric abdominal pain Code(s): R10.13 - EPIGASTRIC PAIN Status: Resolved (10) Nausea & vomiting Code(s): R11.2 - NAUSEA WITH VOMITING, UNSPECIFIED Status: Resolved (11) Anemia, normocytic normochromic Code(s): D64.9 - ANEMIA, UNSPECIFIED Status: Chronic (12) Atrial fibrillation with slow ventricular response Code(s): I48.91 - UNSPECIFIED ATRIAL FIBRILLATION Status: Chronic (13) CAD (coronary artery disease) Code(s): I25.10 - ATHSCL HEART DISEASE OF [place] CORONARY ARTERY W/O ANG PCTRS Status: Chronic (14) Chronic anticoagulation Code(s): Z79.01 - RESIDENTIAL (CURRENT) USE OF ANTICOAGULANTS Status: Chronic (15) Dyslipidemia Code(s): E78.5 - HYPERLIPIDEMIA, UNSPECIFIED Status: Chronic (16) PAD (peripheral artery disease) Code(s): I73.9 - PERIPHERAL VASCULAR DISEASE, UNSPECIFIED Status: Chronic - Plan cont current plan of care, plan discussed w/ family * continue IVF today * today EGD * will need EUS after discharge * I discussed with GI * continue amiodaron and coreg for now * will monitor today * will repeat labs tomorrow. * medication reviewed as below * symptomatic treatment * discussed with family Review of Systems - Review of Systems Constitutional: negative: fever, chills, sweats, weakness, malaise, other Eyes: negative: Pain, Vision Change, Conjunctivae Inflammation, Eyelid Inflammation, Redness, Other ENT: negative: Ear Pain, Ear Discharge, Nose Pain, Nose Discharge, Nose Congestion, Mouth Pain, Mouth Swelling, Throat Pain, Throat Swelling, Other Respiratory: negative: Cough, Dry, Shortness of Breath, Hemoptysis, SOB with Excertion, Pleuritic Pain, Sputum, Wheezing Cardiovascular: negative: chest pain, palpitations, orthopnea, paroxysmal nocturnal dyspnea, edema, light headedness, other Gastrointestinal: negative: Nausea, Vomiting, Abdominal Pain, Diarrhea, Constipation, Melena, Hematochezia, Other Genitourinary: negative: Dysuria, Frequency, Incontinence, Hematuria, Retention , Other Musculoskeletal: negative: Neck Pain, Shoulder Pain, Arm Pain, Back Pain, Hand Pain, Leg Pain, Foot Pain, Other Skin: negative: Rash, Lesions, Saravanan, Bruising, Other - Medications/Allergies Allergies/Adverse Reactions: Allergies Allergy/AdvReac Type Severity Reaction Status Date / Time nitrofurantoin Allergy Intermediate LEGS Verified 10/27/17 01:03 SWELLING atorvastatin [From Lipitor] Allergy Verified 10/27/17 01:03 lactose Allergy Verified 10/27/17 01:03 Medications: Current Medications Acetaminophen (Tylenol) 650 mg PO Q4H PRN PRN Reason: Headache/Fever or Pain Hydrocodone Bitart/Acetaminophen ([place] 5/325) 1 tab PO Q4H PRN PRN Reason: Moderate Pain (4-6) Al Hydroxide/Mg Hydroxide (Maalox) 15 ml PO Q4H PRN PRN Reason: Heartburn or Indigestion Amiodarone HCl (Cordarone) 200 mg PO DAILY [facility] Artificial Tears (Tears Naturale) 0 drop EA EYE PRN PRN PRN Reason: Dry Eyes Calcium Carbonate (Tums) 1,000 mg PO Q4H PRN PRN Reason: Heartburn or Indigestion Carvedilol (Coreg) 6.25 mg PO BID-WM [facility] Guaifenesin (Robitussin Sf) 200 mg PO Q4H PRN PRN Reason: Cough Hydralazine HCl (Apresoline) 10 mg SLOW IVP Q4H PRN PRN Reason: Systolic BP > 180 Sodium Chloride (Normal Saline 0.9%) 1,000 mls @ 125 mls/hr IV .Q8H [facility] Last Admin: 10/28/17 04:37 Dose: 1,000 mls Loperamide HCl (Imodium) 2 mg PO PRN PRN PRN Reason: Diarrhea/Loose Stools Magnesium Hydroxide (Milk Of Magnesium) 30 ml PO DAILYPRN PRN PRN Reason: Constipation Mineral Oil/White Petrolatum (Eucerin Cream) 0 gm TOP BIDPRN PRN PRN Reason: Dry Skin Ondansetron HCl (Zofran Odt) 4 mg PO Q6H PRN PRN Reason: Nausea/Vomiting Last Admin: 10/27/17 09:08 Dose: 4 mg Ondansetron HCl (Zofran) 4 mg IVP Q6H PRN PRN Reason: Nausea/Vomiting Pantoprazole Sodium (Protonix) 40 mg IVP Q12HR [facility] Last Admin: 10/27/17 21:36 Dose: 40 mg Phenol (Chloraseptic [place] 180 Ml Bot) 0 ml PO PRN PRN PRN Reason: Sore Throat Pravastatin Sodium (Pravachol) 20 mg PO HS [facility] Last Admin: 10/27/17 21:36 Dose: 20 mg Multivit/Folic Acid/Iron ( Vitamin) 1 tab PO DAILY [facility] Last Admin: 10/27/17 09:08 Dose: 1 tab Senna (Senokot) 2 tab PO HSPRN PRN PRN Reason: Constipation Sodium Chloride (Flush - Normal Saline) 10 ml IVF Q12HR [facility] Last Admin: 10/27/17 21:36 Dose: Not Given Sodium Chloride (Flush - Normal Saline) 10 ml IVF PRN PRN PRN Reason: Saline Flush Sodium Chloride ([place] Nasal [place] 0.65%) 0 ml EA NARE QIDPRN PRN PRN Reason: Nasal Congestion Temazepam (Restoril) 15 mg PO HSPRN PRN PRN Reason: Insomnia
[2017-10-28] MEDS: Carvedilol 6.25 MG TAB PO SCH ×2 (12:27→17:17)
[2017-10-28] MEDS: Prenatal Vitamin 1 TAB PO SCH (12:27)
[2017-10-28] MEDS: Amiodarone 200 MG TAB PO SCH (12:27)
[2017-10-28] MEDS: Pantoprazole 40 MG VIAL IVP SCH ×3 (12:28→22:05)
[2017-10-28] MEDS ORDERED: PROPOFOL 200 MG/20 ML VIAL ONE (13:30)
--- NOTE | 2017-10-28 15:10 | PDOC.CTH ---
<Sadie Delgado - Last Filed: 10/28/17 16:43> Cardiology Progress Note - Subjective The pt seen and examined. No overnight events. No cardiac complaints. She complains of pain to esophagus possible due to s/p EGD today. - Objective Vital Signs Temp Pulse Resp BP Pulse Ox 10/28/17 11:05 97.7 F 93 18 142/73 H 97 10/28/17 08:00 98.4 F 71 18 10/28/17 07:30 98.4 F 71 18 161/72 H 92 L 10/28/17 04:45 98.5 F 85 16 139/64 95 Weight 192 lb 12.8 oz 10/27/17 10/28/17 10/29/17 06:59 06:59 06:59 Intake Total 890 150 Output Total 0 1700 Balance 890 -1550 - Physical Examination General/Neuro: alert & oriented x3 Neck: no JVD present Lungs: CTA Heart: RRR Abdomen: soft Extremities: other: (No edema) - Telemetry Telemetry Rhythm: SR - Labs Result Diagrams: 10/28/17 05:23 10/28/17 05:23 Troponin/CKMB CK-MB (CK-2) 1.0 ng/mL (0-6.6) 10/26/17 23:27 Troponin I 0.010 ng/mL (< 0.028) 10/26/17 23:27 - Assessment/Plan 1. Paroxysmal Afib - converted back to SR around 0200 on 10/27/17; on amiodarone 200mg qd and Coreg 6.25mg BID; hold Eliquis or other OAC for now due to positive Occult stool test and EGD today showed 2 ulcers. 2. CAD with Hx of CABG x5 in 2017 - stable; cont. to monitor; not on NIALL due to hx of CKD 3. HTN - stable 4. Hyperlipidemia - on Statin 5. CKD stage 3 - improving; 6. PVD with hx o Rt CEA 7. Chronic Anemia - stable; EGD today showed ulcer x2 MAR reviewed Review of Systems - Review of Systems Constitutional: reports: no symptoms reported EENTM: reports: see HPI Respiratory: reports: no symptoms reported Cardiac (ROS): reports: no symptoms reported ABD/GI: reports: no symptoms reported : reports: no symptoms reported Musculoskeletal: reports: no symptoms reported <Velazco,G Rashaad - Last Filed: 10/28/17 22:38> Cardiology Progress Note - Objective Vital Signs Temp Pulse Resp BP Pulse Ox 10/28/17 19:30 98.1 F 92 16 144/67 H 96 10/28/17 16:10 98.0 F 92 16 121/56 L 96 10/28/17 11:05 97.7 F 93 18 142/73 H 97 Weight 192 lb 12.8 oz 10/27/17 10/28/17 10/29/17 06:59 06:59 06:59 Intake Total 359 299 8288 Output Total 0 1700 800 Balance 890 -1550 702 - Labs Result Diagrams: 10/28/17 05:23 10/28/17 05:23 Troponin/CKMB CK-MB (CK-2) 1.0 ng/mL (0-6.6) 10/26/17 23:27 Troponin I 0.010 ng/mL (< 0.028) 10/26/17 23:27 - Assessment/Plan Pt. was seen and eval. by me. I have discussed the pt. and agree with the A/P by the PLAYGROUND SUPERVISOR Danny.
[2017-10-28] MEDS ORDERED: Apixaban 5 MG TAB PO SCH (21:00)
[2017-10-28] MEDS: Pravastatin Sodium 20 MG TAB PO SCH (22:05)
[2017-10-29] MEDS: Sodium Chloride 0.9% 1,000 ML IV SCH ×2 (01:31→07:48)
--- NOTE | 2017-10-29 02:10 | OP ---
DATE OF PROCEDURE: 10/28/2017 PREOPERATIVE DIAGNOSES: Abdominal pain, nausea, vomiting. POSTOPERATIVE DIAGNOSES: 1. Hiatus hernia. 2. Two shallow gastric ulcer over the gastric antrum with gastritis. 3. Mild duodenitis. OPERATIVE PROCEDURE: Esophagogastroduodenoscopy with biopsy. PROCEDURE NOTE: The patient was placed on the left lateral position and was given sedation by the An esthesia Department. A [employer] video gastroscope under direct vision was passed down the oropharynx, past the GE junction, into the stomach and subsequently into the descending duodenum. The vocal cord s appeared healthy. The esophageal mucosa appears normal. The GE junction, no lesions seen. She magana s hiatus hernia. The fundus, cardia and gastric body, no pathology seen. The gastric antrum showed antral gastritis with two shallow ulceration. The duodenal bulb mucosa was edematous and erythematou s, indicative of duodenitis. The descending duodenum, no pathology seen. Biopsy obtained from the g astric antrum. The stomach was decompressed and the scope was removed. RECOMMENDATIONS: 1. Continue Protonix. 2. Heart healthy diet. 3. From a GI standpoint, the patient can be discharged home. Her liver function test is elevated an d I would recommend starting the Pravachol, because of the possibility of drug-induced liver disease. The plan is to perform an endosonography as an outpatient.
[2017-10-29 05:42] LABS: #Eosinphils 0.3 thou/uL (0.0-0.7); #Lymphocytes 1.3 thou/uL (1.20-3.40); #Monocytes 0.8 thou/uL (0.11-0.59); #Neutrophils 5.7 thou/uL (1.40-6.50); %Basophils 0.4 % (0.0-1.0); %Eosinophils 3.1 % (0.0-10.0); %Lymphocytes 16.1 % (21.0-51.0); %Monocytes 10.3 % (0.0-10.0); %Neutrophils 70.1 % (42.0-75.0); Hemoglobin 10.5 g/dL (12.0-16.0); Mean Corpuscular HGB CONC 33.4 g/dL (32.0-36.0); Mean Corpuscular Hemoglobin 27.8 pg (27.0-31.0); Mean Corpuscular Volume 83.1 fL (78.0-98.0); Mean Platelet Volume 9.6 fL (7.4-10.4); Platelet Count 211 thou/uL (130-400); RBC Distribution Width 16.1 % (11.5-14.5); Red Blood Cell (RBC) Count 3.78 mill/uL (4.20-5.40); White Blood Cell (WBC) Count 8.1 thou/uL (4.8-10.8)
[2017-10-29 05:55] LABS: ALT (SGPT) 44 U/L (8-55); AST (SGOT) 42 U/L (5-34); Albumin 3.3 g/dL (3.4-4.8); Alkaline Phosphatase 275 U/L (40-150); Anion Gap 11 mmol/L (10-20); BUN (Urea Nitrogen) 18 mg/dL (9.8-20.1); Bilirubin, Total 0.5 mg/dL (0.2-1.2); Calc. Creatinine Clearance 64 mL/min (70-130); Calcium 9.1 mg/dL (7.8-10.44); Carbon Dioxide 22 mmol/L (23-31); Chloride 106 mmol/L (98-107); Estimated GFR-MDRD 47; Glucose 93 mg/dL (80-115); Potassium 4.6 mmol/L (3.5-5.1); Protein, Total 7.3 g/dL (6.0-8.3); Sodium 134 mmol/L (136-145)
[2017-10-29 06:13] LABS: HBCM Index 0.13 S/CO (0-0.79); HBSAg Index 0.22 S/CO (0-0.99); Hep A IgM AB Non-Reactive (NonReactive); Hep A IgM S/CO 0.29 S/CO (0-0.79); Hep B Surf Ag Non-Reactive S/CO (NonReactive); Hep C IgG Ab Non-Reactive (NonReactive); Hep C Index 0.15 S/CO (0-0.79); Hepatitis B Core IGM Abs Non-Reactive (NonReactive)
[2017-10-29] MEDS: Carvedilol 6.25 MG TAB PO SCH ×2 (07:46→17:01)
[2017-10-29] MEDS: Amiodarone 200 MG TAB PO SCH (07:46)
[2017-10-29] MEDS: Prenatal Vitamin 1 TAB PO SCH (07:46)
--- NOTE | 2017-10-29 08:49 | PDOC.CTH ---
Cardiology Progress Note - Objective Vital Signs Temp Pulse Resp BP Pulse Ox 10/29/17 07:43 98.1 F 99 16 150/81 H 95 10/29/17 04:00 98.1 F 91 18 170/77 H 97 Weight 192 lb 12.8 oz 10/28/17 10/29/17 10/30/17 06:59 06:59 06:59 Intake Total 150 3242 Output Total 1700 2100 Balance -1550 1142 - Labs Result Diagrams: 10/29/17 05:16 10/29/17 05:16 Troponin/CKMB CK-MB (CK-2) 1.0 ng/mL (0-6.6) 10/26/17 23:27 Troponin I 0.010 ng/mL (< 0.028) 10/26/17 23:27 - Assessment/Plan 1. Afib now SR 2. Bradycardia 3. Anemia 4. CAD s/p CABG 5. Chronic anemia
[2017-10-29] MEDS ORDERED: Pantoprazole 40 MG VIAL IVP SCH (09:00)
--- NOTE | 2017-10-29 10:52 | PDOC.PN ---
- Subjective Encounter Start Date: 10/29/17 Encounter Start Time: 07:50 Patient seen and examined. No new complaints. No overnight events - Objective MAR Reviewed: Yes Vital Signs & Weight: Vital Signs (12 hours) Temp Pulse Resp BP Pulse Ox 10/29/17 07:43 98.1 F 99 16 150/81 H 95 10/29/17 04:00 98.1 F 91 18 170/77 H 97 Weight Weight 192 lb 12.8 oz I&O: 10/28/17 10/29/17 10/30/17 06:59 06:59 06:59 Intake Total 150 3242 Output Total 1700 2100 Balance -1550 1142 Result Diagrams: 10/29/17 05:16 10/29/17 05:16 EKG Reviewed by me: Yes Phys Exam - Physical Examination Constitutional: NAD HEENT: PERRLA, moist MMs, sclera anicteric Neck: no JVD, supple Respiratory: no wheezing, no rales, no rhonchi Cardiovascular: no significant murmur, irregular Gastrointestinal: soft, non-tender, no distention, positive bowel sounds Musculoskeletal: no edema, pulses present Neurological: non-focal, normal sensation, moves all 4 limbs Psychiatric: normal affect, A&O x 3 Skin: no rash, normal turgor Dx/Plan (1) Acute worsening of stage 3 chronic kidney disease Code(s): N18.3 - CHRONIC KIDNEY DISEASE, STAGE 3 (MODERATE) Status: Resolved (2) Bradycardia, drug induced Code(s): R00.1 - BRADYCARDIA, UNSPECIFIED; T50.905A - ADVERSE EFFECT OF UNSP DRUG/MEDS/BIOL SUBST, INIT Status: Resolved (3) Hyperkalemia Code(s): E87.5 - HYPERKALEMIA Status: Resolved (4) Hyponatremia Code(s): E87.1 - HYPO-OSMOLALITY AND HYPONATREMIA Status: Resolved (5) Hypertension Code(s): I10 - ESSENTIAL (PRIMARY) HYPERTENSION Status: Chronic (6) Obesity (BMI 30.0-34.9) Code(s): E66.9 - OBESITY, UNSPECIFIED Status: Chronic (7) Abnormal LFTs Code(s): R94.5 - ABNORMAL RESULTS OF LIVER FUNCTION STUDIES Status: Acute Comment: will need EUS after discharge (8) Acute kidney failure Status: Resolved Comment: improving with IVF (9) Epigastric abdominal pain Code(s): R10.13 - EPIGASTRIC PAIN Status: Resolved (10) Nausea & vomiting Code(s): R11.2 - NAUSEA WITH VOMITING, UNSPECIFIED Status: Resolved (11) Anemia, normocytic normochromic Code(s): D64.9 - ANEMIA, UNSPECIFIED Status: Chronic (12) Atrial fibrillation with slow ventricular response Code(s): I48.91 - UNSPECIFIED ATRIAL FIBRILLATION Status: Chronic (13) CAD (coronary artery disease) Code(s): I25.10 - ATHSCL HEART DISEASE OF [place] CORONARY ARTERY W/O ANG PCTRS Status: Chronic (14) Chronic anticoagulation Code(s): Z79.01 - DESCRIPTIVE CATALOG LIBRARIAN (CURRENT) USE OF ANTICOAGULANTS Status: Chronic (15) Dyslipidemia Code(s): E78.5 - HYPERLIPIDEMIA, UNSPECIFIED Status: Chronic (16) PAD (peripheral artery disease) Code(s): I73.9 - PERIPHERAL VASCULAR DISEASE, UNSPECIFIED Status: Chronic - Plan cont current plan of care, plan discussed w/ family * protonix 40 mg po bid * medication reviewed as below * symptomatic treatment * see discharge summery * stable for discharge today if cardiology OK * discharge medication reconciliation done. * currently on hold elliquis due to guaic positive stool and gastric ulcer, I think we may start oral anticoagulant in 1.2 weeks but will get opnion from cardiology and GI * discussed with daughter Review of Systems - Review of Systems Eyes: negative: Pain, Vision Change, Conjunctivae Inflammation, Eyelid Inflammation, Redness, Other ENT: negative: Ear Pain, Ear Discharge, Nose Pain, Nose Discharge, Nose Congestion, Mouth Pain, Mouth Swelling, Throat Pain, Throat Swelling, Other Respiratory: negative: Cough, Dry, Shortness of Breath, Hemoptysis, SOB with Excertion, Pleuritic Pain, Sputum, Wheezing Cardiovascular: negative: chest pain, palpitations, orthopnea, paroxysmal nocturnal dyspnea, edema, light headedness, other Gastrointestinal: negative: Nausea, Vomiting, Abdominal Pain, Diarrhea, Constipation, Melena, Hematochezia, Other Genitourinary: negative: Dysuria, Frequency, Incontinence, Hematuria, Retention , Other Musculoskeletal: negative: Neck Pain, Shoulder Pain, Arm Pain, Back Pain, Hand Pain, Leg Pain, Foot Pain, Other Skin: negative: Rash, Lesions, Saravanan, Bruising, Other - Medications/Allergies Allergies/Adverse Reactions: Allergies Allergy/AdvReac Type Severity Reaction Status Date / Time nitrofurantoin Allergy Intermediate LEGS Verified 10/27/17 01:03 SWELLING atorvastatin [From Lipitor] Allergy Verified 10/27/17 01:03 lactose Allergy Verified 10/27/17 01:03 Medications: Current Medications Acetaminophen (Tylenol) 650 mg PO Q4H PRN PRN Reason: Headache/Fever or Pain Hydrocodone Bitart/Acetaminophen ([place] 5/325) 1 tab PO Q4H PRN PRN Reason: Moderate Pain (4-6) Al Hydroxide/Mg Hydroxide (Maalox) 15 ml PO Q4H PRN PRN Reason: Heartburn or Indigestion Amiodarone HCl (Cordarone) 200 mg PO DAILY [facility] Last Admin: 10/29/17 07:46 Dose: 200 mg Artificial Tears (Tears Naturale) 0 drop EA EYE PRN PRN PRN Reason: Dry Eyes Calcium Carbonate (Tums) 1,000 mg PO Q4H PRN PRN Reason: Heartburn or Indigestion Carvedilol (Coreg) 6.25 mg PO BID-[facility] Last Admin: 10/29/17 07:46 Dose: 6.25 mg Guaifenesin (Robitussin Sf) 200 mg PO Q4H PRN PRN Reason: Cough Hydralazine HCl (Apresoline) 10 mg SLOW IVP Q4H PRN PRN Reason: Systolic BP > 180 Sodium Chloride (Normal Saline 0.9%) 1,000 mls @ 125 mls/hr IV .Q8H [facility] Last Admin: 10/29/17 07:48 Dose: 1,000 mls Loperamide HCl (Imodium) 2 mg PO PRN PRN PRN Reason: Diarrhea/Loose Stools Magnesium Hydroxide (Milk Of Magnesium) 30 ml PO DAILYPRN PRN PRN Reason: Constipation Mineral Oil/White Petrolatum (Eucerin Cream) 0 gm TOP BIDPRN PRN PRN Reason: Dry Skin Ondansetron HCl (Zofran Odt) 4 mg PO Q6H PRN PRN Reason: Nausea/Vomiting Last Admin: 10/27/17 09:08 Dose: 4 mg Ondansetron HCl (Zofran) 4 mg IVP Q6H PRN PRN Reason: Nausea/Vomiting Pantoprazole Sodium (Protonix) 40 mg IVP Q12HR [facility] Last Admin: 10/29/17 07:55 Dose: 40 mg Phenol (Chloraseptic [place] 180 Ml Bot) 0 ml PO PRN PRN PRN Reason: Sore Throat Pravastatin Sodium (Pravachol) 20 mg PO HS [facility] Last Admin: 10/28/17 22:05 Dose: 20 mg Multivit/Folic Acid/Iron ( Vitamin) 1 tab PO DAILY [facility] Last Admin: 10/29/17 07:46 Dose: 1 tab Senna (Senokot) 2 tab PO HSPRN PRN PRN Reason: Constipation Sodium Chloride (Flush - Normal Saline) 10 ml IVF Q12HR [facility] Last Admin: 10/29/17 07:47 Dose: 10 ml Sodium Chloride (Flush - Normal Saline) 10 ml IVF PRN PRN PRN Reason: Saline Flush Sodium Chloride ([place] Nasal [place] 0.65%) 0 ml EA NARE QIDPRN PRN PRN Reason: Nasal Congestion Temazepam (Restoril) 15 mg PO HSPRN PRN PRN Reason: Insomnia
--- NOTE | 2017-10-29 12:40 | DIS ---
DATE OF ADMISSION: 10/26/2017 DATE OF DISCHARGE: 10/29/2017 PRIMARY CARE PHYSICIAN: Dr. Carmen Villalpando. DISCHARGE DISPOSITION: Home. PRIMARY DISCHARGE DIAGNOSES: 1. Nausea, vomiting and epigastric abdominal pain due to duodenitis and gastritis and two gastric sm all ulcer. 2. Hyponatremia due to dehydration, corrected. 3. Hyperkalemia due to renal failure, improved. 4. Acute on chronic kidney failure, baseline chronic kidney disease stage 3. 5. Drug induced bradycardia, resolved. 6. Abnormal LFT. SECONDARY DISCHARGE DIAGNOSES: 1. Normocytic normochromic anemia. 2. Atrial fibrillation with a slow ventricular response. 3. Coronary artery disease. 4. Chronic anticoagulation. 5. Dyslipidemia. 6. Hypertension. 7. Obesity with BMI 33. 8. Peripheral arterial disease. 9. Chronic kidney disease stage 3. PRIMARY PROCEDURE AND OPERATION: Upper endoscopy was performed by Dr. Brody and found with duode nitis, gastritis and two gastric ulcers without any active bleeding. RADIOLOGICAL INVESTIGATION: Abdomen and pelvis CT scan showed no acute intra-abdominal process. Abd ominal ultrasound showed biliary duct prominence without any acute process. Chest x-ray was normal. SIGNIFICANT LABORATORY DATA: WBC 8.1, hemoglobin 10.5, platelets 211. Sodium 134, potassium 4.6, BU N 18, creatinine 1.15, calcium 9.1, AST 42, ALT 44, alkaline phosphatase 275, albumin 3.3. TSH 4.24. Cardiac enzymes negative. Urinalysis unremarkable. Hepatitis profile negative. Stool for guaiac positive. DISCHARGE MEDICATIONS: Amiodarone 200 mg p.o. daily, Eliquis 5 mg p.o. b.i.d., aspirin 81 mg p.o. da juan, Coreg 6.25 mg p.o. b.i.d., vitamin D3 1000 unit p.o. daily, Protonix 40 mg p.o. b.i.d., pravasta tin 20 mg p.o. at bedtime, vitamin 1 tablet p.o. daily. CONTRAINDICATIONS: None. CODE STATUS: FULL CODE. INPATIENT CONSULTANTS: Dr. Velazco was following while in hospital. Dr. Brody was consulted for ep igastric abdominal pain who did EGD. TEST RESULTS PENDING ON DISCHARGE: Pathology report from stomach. DISCHARGE PLAN: Post hospital, the patient is instructed to follow up with Dr. Brody in 1 or [address] Brody will order an endoscopic ultrasound for abnormal LFT. Patient will follow up with Dr. Velazco and primary care physician as instructed. ALLERGIES: MACROBID, LIPITOR, LACTOSE. HOSPITAL COURSE: A 67-year-old female with above-mentioned medical problem who was admitted by Dr. Ijeoma alarcon. Please see her H&P for further detail. This patient was having nausea, vomiting, epigastric abdominal pain. She was also taking NSAID for her chronic low back pain. We suspected upper gastrit is as well as duodenitis versus peptic ulcer disease and that is why we consulted [facility]. They did upper endoscopy and found with gastritis and duodenitis as well as small gastric ulcer wit hout any active bleeding. She had a guaiac positive stool, but her hemoglobin remained stable. I spoke with Dr. Brody about anticoagulation, aspirin and he recommended that there should be no problem with continuing both aspirin and Eliquis as per previous home dosage. Only he recommended is Protonix 40 mg p.o. b.i.d. The patient will follow up with Dr. Brody in 1 or 2 weeks for follow up on pathology report. The patient also found with abnormal LFT and that is why we did ultrasound abdomen, which showed comm on bile duct prominence without any acute process. CT of the abdomen and pelvis was also negative. She did not have any Ariza sign or any right upper quadrant tenderness. Dr. Brody is planning t o do endoscopic ultrasound as an outpatient basis. The patient also had bradycardia on admission that was related with her medication. We discontinued all medication while in hospital initially and subsequently her bradycardia resolved and she started getting tachycardic, at that point amiodarone and Coreg was started. Cardizem was discontinued. Thi s patient may have component of tachybrady syndrome and in that case in future, she may need a pacema ker as per Cardiology. At this point, the patient is completely asymptomatic. She is tolerating p.o. well. We provided pat ient education to avoid NSAIDs. While in hospital, the patient also had acute on chronic kidney failure and that was improved to norm al with IV fluid and that may be related with her dehydration on top of her NSAID abuse. The patient is seen and examined at bedside today. Please see my progress note from today for furthe r detail. Plan of care discussed with the family member as well.
[2017-10-29 15:38] VITALS: TEMP 98
--- NOTE | 2017-10-29 17:16 | PRG ---
DATE OF SERVICE: 10/29/2017 SUBJECTIVE: Ms. Moctezuma is doing well, no current complaints. PHYSICAL EXAMINATION: VITAL SIGNS: Blood pressure 145/74, pulse 99, temperature 97.6. LUNGS: Clear to auscultation. CARDIAC: Heart, regular rate and rhythm. ABDOMEN: Soft, nontender, nondistended. EXTREMITIES: No edema. IMPRESSION: 1. Gastrointestinal bleed. 2. Atrial fibrillation. RECOMMENDATIONS: I spoke with Dr. Brody. He is okay to restart anticoagulation therapy. She magana s had 2 ulcerations that are likely to heal. She has been taking nonsteroidal therapy around the juice ck for back discomfort. I would restart Eliquis. Recommend follow up with me in the next week.
[2017-10-29 17:59] VITALS: BP 148/68
--- NOTE | 2017-10-30 10:45 | EKG ---
Test Reason : PREOP Blood Pressure : / mmHG Vent. Rate : 092 BPM Atrial Rate : 091 BPM P-R Int : 000 ms QRS Dur : 076 ms QT Int : 350 ms P-R-T Axes : 000 036 118 degrees QTc Int : 432 ms Sinus tachycardia Abnormal ECG Confirmed by DEION JOSEPH ([id number]) on 10/30/2017 10:45:07 AM Referred By: KALEB Confirmed By:DEION JOSEPH
--- NOTE | 2017-10-30 10:57 | EKG ---
Test Reason : RHYTHM CHANGE Blood Pressure : / mmHG Vent. Rate : 070 BPM Atrial Rate : 061 BPM P-R Int : 000 ms QRS Dur : 090 ms QT Int : 446 ms P-R-T Axes : 000 045 -86 degrees QTc Int : 481 ms Atrial fibrillation Nonspecific ST and T wave abnormality Prolonged QT Abnormal ECG Confirmed by DEION JOSEPH ([id number]) on 10/30/2017 10:56:59 AM Referred By: FOZIA Confirmed By:DEION JOSEPH
== END 2017-10-29 18:08 | disposition home or self-care (01) | DRG 683 ==
LOC: ERS 18:54 → IMCU/EMU 23:00 → 2NO 10-27 19:14
PROVIDERS: ADMIT Internal Medicine; ATTEND Internal Medicine
PROC: 0DB78ZX Excision of Stomach, Pylorus, Via Natural or Artificial Opening Endoscopic, Diagnostic (ICD-10-PCS; principal; 2017-10-28)
DX: N17.9 Acute kidney failure, unspecified (principal); E87.1 Hypo-osmolality and hyponatremia; K29.70 Gastritis, unspecified, without bleeding; K25.9 Gastric ulcer, unspecified as acute or chronic, without hemorrhage or perforation; K29.80 Duodenitis without bleeding; D64.9 Anemia, unspecified; M54.5 Low back pain; F55.8 Abuse of other non-psychoactive substances; R19.5 Other fecal abnormalities; R00.1 Bradycardia, unspecified; K44.9 Diaphragmatic hernia without obstruction or gangrene; E78.5 Hyperlipidemia, unspecified; I25.10 Atherosclerotic heart disease of native coronary artery without angina pectoris; I48.0 Paroxysmal atrial fibrillation; E86.0 Dehydration; I95.9 Hypotension, unspecified; I44.7 Left bundle-branch block, unspecified; E73.9 Lactose intolerance, unspecified; I12.9 Hypertensive chronic kidney disease with stage 1 through stage 4 chronic kidney disease, or unspecified chronic kidney disease; N18.3 Chronic kidney disease, stage 3 (moderate); E87.5 Hyperkalemia; E66.9 Obesity, unspecified; T46.1X5A Adverse effect of calcium-channel blockers, initial encounter; T44.7X5A Adverse effect of beta-adrenoreceptor antagonists, initial encounter; I73.9 Peripheral vascular disease, unspecified; R94.5 Abnormal results of liver function studies; K59.09 Other constipation; K21.9 Gastro-esophageal reflux disease without esophagitis; Z68.33 Body mass index [BMI] 33.0-33.9, adult; Z82.3 Family history of stroke; Z82.49 Family history of ischemic heart disease and other diseases of the circulatory system; Z88.8 Allergy status to other drugs, medicaments and biological substances; Z87.891 Personal history of nicotine dependence; Z79.899 Other long term (current) drug therapy; Z95.1 Presence of aortocoronary bypass graft; Z79.82 Long term (current) use of aspirin; Z79.01 Long term (current) use of anticoagulants; Z90.49 Acquired absence of other specified parts of digestive tract; Z86.79 Personal history of other diseases of the circulatory system; Z82.0 Family history of epilepsy and other diseases of the nervous system; Z79.1 Long term (current) use of non-steroidal anti-inflammatories (NSAID)
CPT/HCPCS: 36415; 71045; 74176; 76705; 80048; 80053; 80074; 81001; 82274; 82553; 82570; 83690; 84156; 84300; 84443; 84484; 85025; 88305; 88312; 93005; 93010; 96374; 96375; A4216; C9113; J0360; J0461; J2270; J2704; Q0162

== ENCOUNTER 2017-11-15 11:11 | Outpatient (CLI) | payer MEDICARE, MEDICAID ==
--- NOTE | 2017-11-15 12:53 | RAD ---
CHEST 2 VIEWS: Date: 11/15/17 HISTORY: Chest pain. COMPARISON: Chest radiograph from 10/26/17. FINDINGS: Heart size upper limits of normal. Mild pulmonary venous congestion. No pneumothorax or large effusio n. Multiple midline median sternotomy wires. Moderate vascular calcifications. Mild spondylosis thora cic spine. IMPRESSION: Mild pulmonary venous congestion. POS: [facility]
== END 2017-11-15 11:12 | disposition home or self-care (01) ==
LOC: RAD 11:11
PROVIDERS: ATTEND Internal Medicine Cardiovascular Disease
DX: R07.9 Chest pain, unspecified (principal); R09.89 Other specified symptoms and signs involving the circulatory and respiratory systems
CPT/HCPCS: 71046

== ENCOUNTER 2018-02-19 10:15 | Outpatient (CLI) | payer MEDICARE, MEDICAID ==
--- NOTE | 2018-02-19 12:37 | CT ---
CT ANGIOGRAM THORAX WITH AND WITHOUT IV CONTRAST: 02/19/2018 HISTORY: Persistent atrial fibrillation, post CABG in January 2017. COMPARISON: 12/13/2015 FINDINGS: There have been interval post surgical changes related to CABG. Dense vascular calcifications are se en in the coronary arteries, with vascular calcifications seen in the thoracic, as well as visualized upper abdominal aorta. Coronary vein is mildly prominent which is non-specific. There is no evidenc e of an aortic dissection or aneurysmal dilatation of the thoracic aorta. Vascular calcifications ar e seen at the origins of the great vessels, which are otherwise patent. Dense vascular calcification at the origins of the celiac and superior mesenteric arteries, limiting evaluation of the lumen in these regions; however, there is moderate narrowing of the origin of the c eliac artery and moderate to severe narrowing involving the origin of the SMA. The origins of the re nal arteries are not well evaluated, but there is at least mild to moderate narrowing of the origin o f each single visualized renal artery. No filling defects are seen in the pulmonary arteries to suggest pulmonary embolus. Mixing artifact is seen in the right atrium without definite filling defect seen. There is dependent atelectasis within the lungs, bilaterally. No discrete pulmonary nodule, mass, or pleural effusion is identified. The mediastinal structures have a normal appearance. The prominent calcification in the right hepatic lobe is again seen, stable from the study in 2016, a s well as stable compared to a study in 2011. There is colonic diverticulosis. Post cholecystectomy changes are present. No other interval change. Degenerative changes are noted in the spine. IMPRESSION: 1. Atherosclerotic vascular calcifications and plaque within the thoracic and visualized upper abdom inal aorta. However, the thoracic and abdominal aorta are normal in caliber without evidence of an a ortic dissection. 2. Post surgical changes related to coronary artery bypass grafting with dense vascular calcificatio ns in the coronary arteries. 3. The remainder of the findings are as described above. POS: [facility]
[2018-02-19] MEDS ORDERED: ISOVUE-370 76%-LOCM 1 ML ONE (15:52)
== END 2018-02-19 10:16 | disposition home or self-care (01) ==
LOC: BICCT 10:15
PROVIDERS: ATTEND Internal Medicine Cardiovascular Disease
DX: I48.1 Persistent atrial fibrillation (principal); I70.0 Atherosclerosis of aorta; I25.10 Atherosclerotic heart disease of native coronary artery without angina pectoris; K57.30 Diverticulosis of large intestine without perforation or abscess without bleeding; M47.9 Spondylosis, unspecified; J98.11 Atelectasis; Z90.49 Acquired absence of other specified parts of digestive tract; Z95.1 Presence of aortocoronary bypass graft
CPT/HCPCS: 71275; 82565

== ENCOUNTER 2018-12-02 09:24 | Outpatient (CLI) | payer MEDICARE, MEDICAID ==
--- NOTE | 2018-12-02 11:12 | RAD ---
Radiograph abdomen one view: 12/02/2018 HISTORY: 68-year-old female with hematuria FINDINGS: Dextroscoliosis of lumbar spine associated with multilevel severe degenerative disc disease. Cholecys tectomy clips in right upper quadrant. No urolithiasis identified, but noncontrast CT would be more sensitive. Normal bowel gas pattern. IMPRESSION: 1. No definite urolithiasis identified. 2. Status post cholecystectomy. 3. Severe lumbar spondylosis associated with dextroscoliosis.
--- NOTE | 2018-12-02 11:20 | RAD ---
RADIOGRAPH LUMBAR SPINE 3 VIEWS: DATE: 12/02/2018 HISTORY: 68-year-old female with low back pain FINDINGS: There are 5 lumbar-type vertebrae. Dextroscoliosis with apex of curvature at L1-2. Grade 2 right late ral chronic subluxation of L3 on L4. Severe disc space narrowing at all levels. Vertebral body heights are maintained. Severe facet DJD at mid and lower levels. Mild grade 1 anterolisthesis of L4 on L5. Degenerative retrolisthesis of L2 on L3, and L3 on L4. Diffuse severe osteopenia. Dysplastic, enlarged right L5 transverse process pseudoarticulating with right S1 sacral ala. Diffuse severe osteopenia. IMPRESSION: 1. Severe lumbar spondylosis with multilevel severe degenerative disc disease and severe facet osteoa rthrosis. 2. Dextroscoliosis. 3. Lumbosacral transitional vertebra type 2A 4. Severe osteopenia. 5. No compression fracture.
--- NOTE | 2018-12-02 11:32 | RAD ---
Radiograph pelvis one view: HISTORY: 68-year-old female with pelvic pain FINDINGS: Severe degenerative disc disease and facet osteoarthrosis in lower lumbar spine, incompletely imaged. Pelvic ring appears to be intact. Bilateral hip joint spaces are mildly to moderately narrowed centrally, but preserved superiorly. No subcapital osteophytes. Femoral head contours are maintained. Pelvic ring appears to be intact. IMPRESSION: 1. Severe lumbar spondylosis. 2. Mild to moderate central bilateral hip joint articular cartilage loss.
== END 2018-12-02 09:25 | disposition home or self-care (01) ==
LOC: BICRAD 09:24
PROVIDERS: ATTEND Family Medicine
DX: N39.0 Urinary tract infection, site not specified (principal); N18.3 Chronic kidney disease, stage 3 (moderate); R31.9 Hematuria, unspecified; M54.9 Dorsalgia, unspecified; M47.816 Spondylosis without myelopathy or radiculopathy, lumbar region; M25.859 Other specified joint disorders, unspecified hip; M51.36 Other intervertebral disc degeneration, lumbar region; M41.86 Other forms of scoliosis, lumbar region; M85.88 Other specified disorders of bone density and structure, other site; Z90.49 Acquired absence of other specified parts of digestive tract
CPT/HCPCS: 72100; 72170; 74018

== ENCOUNTER 2020-02-24 13:05 | Outpatient (CLI) | payer MEDICARE, MEDICAID ==
--- NOTE | 2020-02-24 15:12 | RAD ---
THREE VIEWS LUMBAR SPINE: 02/24/20 INDICATION: History of fall on October 17 with worsening back pain. COMPARISON: Prior lumbar spinal radiograph dated 12/02/18. FINDINGS: There is widening of the L3-4 intervertebral space slightly more pronounced on the prior examination, some of which may be related to positioning. There is some vacuum disc phenomenon now present at L1 -2, L2-3, and L3-4 which is indicative of some disc instability. There is worsening sclerosis seen velarde rrounding the end plates of L3-4. There is some end plate sclerosis seen along the concave side of th e left L2-3 intervertebral level. The advanced disc degenerative disease at L4-5 and L5-S1 persists. Dextroscoliosis is stable. No acute fracture is noted. Severe vascular calcification of the abdominal and pelvic vasculature is similar. Cholecystectomy clips are seen in the right upper quadrant. IMPRESSION: Worsening severe lumbar spondylosis. There is increased widening of the L3-4 intervertebral level, so me of which may be related to positioning. No definite acute fracture is evident. No overt end plate erosive change is evident to suggest the presence of discitis or osteomyelitis. If there is concern f or an intervertebral disc infection by clinical symptoms, further evaluation with MR of the lumbar sp ine with and without contrast is recommended. Code T POS: [facility]
--- NOTE | 2020-02-24 15:23 | RAD ---
AP VIEW OF THE PEVLIS: 02/24/20 INDICATION; History of fall with worsening back pain. COMPARISON: Prior exam dated 12/02/18. FINDINGS: There is slightly more pronounced disc degenerative disease and vacuum disc phenomenon at L3-4 better detailed on the lumbar spinal radiograph dictated separately but concurrently performed with the cur rent study. Mild degenerative changes of both hips appears similar. Scattered vascular calcifications are seen within the pelvis. Surgical clips within the left inguinal region is stable. Injection gran ulomata overlying the right gluteal region is stable. IMPRESSION: No acute osseous abnormality. POS: [facility]
== END 2020-02-24 13:06 | disposition home or self-care (01) ==
LOC: BICRAD 13:05
PROVIDERS: ATTEND Family Medicine
DX: M53.86 Other specified dorsopathies, lumbar region (principal); M47.816 Spondylosis without myelopathy or radiculopathy, lumbar region
CPT/HCPCS: 72100; 72170

== ENCOUNTER 2020-03-01 06:23 | Outpatient (CLI) | payer MEDICARE ==
[2020-03-01 17:22] LABS: #Basophils 0.1 10x3/uL (0.0-0.2); #Eosinphils 0.5 10x3/uL (0.0-0.5); #Monocytes 0.9 10x3/uL (0.0-1.1); #Neutrophils 4.3 10x3/uL (1.5-8.4); %Basophils 1.3 % (0.0-2.0); %Eosinophils 6.3 % (0.0-6.0); %Lymphocytes 26.1 % (18.0-47.0); %Monocytes 11.3 % (0.0-10.0); %Neutrophils 54.5 % (40.0-75.0); Hemoglobin 11.8 g/dL (12.0-16.0); Mean Corpuscular HGB CONC 32.1 G/DL (32.0-36.0); Mean Corpuscular Hemoglobin 26.9 PG (27.0-33.0); Mean Platelet Volume 12.1 fl (7.4-10.4); Platelet Count 243 10x3/uL (130-400); RBC Distribution Width 15.6 % (11.5-14.5); Red Blood Cell (RBC) Count 4.38 10x6/uL (3.90-5.20); White Blood Cell (WBC) Count 7.9 10x3/uL (4.5-11.0)
[2020-03-01 17:39] LABS: Anion Gap 20 mmol/L (10-20); BUN (Urea Nitrogen) 23 mg/dL (9.8-20.1); Calc. Creatinine Clearance 0 mL/min (70-130); Calcium 9.3 mg/dL (7.8-10.44); Carbon Dioxide 19 mmol/L (23-31); Chloride 102 mmol/L (98-107); Glucose 99 mg/dL (83-110); Potassium 4.7 mmol/L (3.5-5.1); Sodium 136 mmol/L (136-145)
[2020-03-02 09:25] LABS: SARS-CoV-2 MS2 Positive; SARS-CoV-2 N Gene Negative; SARS-CoV-2 S Gene Negative; SARS-CoV-2 by NAA Not Detected (NotDetected); SARS-CoV-2 orf1ab Negative
== END 2020-03-01 06:24 | disposition home or self-care (01) ==
LOC: LABBT 06:23
PROVIDERS: ATTEND Internal Medicine Cardiovascular Disease
DX: Z01.812 Encounter for preprocedural laboratory examination (principal); I48.91 Unspecified atrial fibrillation; Z20.828 Contact with and (suspected) exposure to other viral communicable diseases
CPT/HCPCS: 80048; 85025; U0003; 87635

== ENCOUNTER 2020-03-04 10:57 | Day surgery (SDC) | payer MEDICARE, MEDICAID ==
[2020-03-04] MEDS ORDERED: Lidocaine 1% PF 5 ML VIAL ONE (13:00)
[2020-03-04] MEDS ORDERED: PROPOFOL 20 ML ONE (13:00)
--- NOTE | 2020-03-09 07:16 | EKG ---
Test Reason : POST CARDIOVERSION Blood Pressure : / mmHG Vent. Rate : 062 BPM Atrial Rate : 062 BPM P-R Int : 186 ms QRS Dur : 090 ms QT Int : 436 ms P-R-T Axes : 065 051 040 degrees QTc Int : 442 ms Normal sinus rhythm Nonspecific ST and T wave abnormality Abnormal ECG No previous ECGs available Confirmed by TEMITOPE LAINEZ MD ([id number]) on 03/09/2020 7:15:37 AM Referred By: MIGEL Confirmed By:TEMITOPE LAINEZ MD
--- NOTE | 2020-03-31 18:31 | OP ---
DATE OF PROCEDURE: 03/04/2020 PREPROCEDURE DIAGNOSIS: Atrial fibrillation. POSTOPERATIVE DIAGNOSIS: Sinus rhythm. PROCEDURE PERFORMED: Synchronized cardioversion. DESCRIPTION OF PROCEDURE: Conscious sedation performed with propofol. The patient has been taking anticoagulation therapy for over four weeks without interruption. After the patient was sedated, she underwent synchronized cardioversion at 150 joules successfully. IMPRESSION: Successful synchronized cardioversion. Job ID: [id number]
== END 2020-03-04 14:09 | disposition home or self-care (01) ==
LOC: CCL 10:57
PROVIDERS: ATTEND Internal Medicine Cardiovascular Disease
PROC: 5A2204Z Restoration of Cardiac Rhythm, Single (ICD-10-PCS; principal; 2020-03-04)
DX: I48.19 Other persistent atrial fibrillation (principal); I25.10 Atherosclerotic heart disease of native coronary artery without angina pectoris; I12.9 Hypertensive chronic kidney disease with stage 1 through stage 4 chronic kidney disease, or unspecified chronic kidney disease; N18.30 Chronic kidney disease, stage 3 unspecified; J45.909 Unspecified asthma, uncomplicated; Z79.899 Other long term (current) drug therapy; Z88.1 Allergy status to other antibiotic agents; Z88.8 Allergy status to other drugs, medicaments and biological substances; Z91.011 Allergy to milk products; Z95.1 Presence of aortocoronary bypass graft
CPT/HCPCS: 92960; 93005; 93010; J2704

== ENCOUNTER 2021-07-22 10:38 | Outpatient (CLI) | payer MEDICARE | END 2021-07-22 10:39 | disposition home or self-care (01) | LOC: BICRAD 10:38 | PROVIDERS: ATTEND Physician Assistant | DX: R05.9 Cough, unspecified (principal); R91.8 Other nonspecific abnormal finding of lung field | CPT/HCPCS: 36415; 71046; 80048; 83880; 85025 ==

== ENCOUNTER 2021-11-03 09:30 | Outpatient (CLI) | payer OTHER, MEDICAID | END 2021-11-03 09:31 | disposition home or self-care (01) | LOC: BICRAD 09:30 | PROVIDERS: ATTEND Family Medicine | DX: R05.3 Chronic cough (principal); Z13.29 Encounter for screening for other suspected endocrine disorder; I25.10 Atherosclerotic heart disease of native coronary artery without angina pectoris; E55.9 Vitamin D deficiency, unspecified; M25.50 Pain in unspecified joint; N30.90 Cystitis, unspecified without hematuria; R73.9 Hyperglycemia, unspecified | CPT/HCPCS: 36415; 71046; 80053; 80061; 81001; 82043; 82306; 83036; 83516; 84443; 85025; 86038; 86160; 86225; 86376; 87077; 87086; 87186 ==

== ENCOUNTER 2022-06-28 10:26 | Outpatient (CLI) | payer OTHER, MEDICAID | END 2022-06-28 10:27 | disposition home or self-care (01) | LOC: BICULT 10:26 | PROVIDERS: ATTEND Family Medicine | DX: R35.0 Frequency of micturition (principal) | CPT/HCPCS: 76770 ==

== ENCOUNTER 2025-03-11 16:59 | Inpatient (IN) | payer OTHER ==
[2025-03-11] MEDS ORDERED: Nitroglycerin 0.4 MG TAB 1 EACH ONE (17:23)
[2025-03-11] MEDS ORDERED: Albuterol 2.5 MG (3 mL) NEB ONE (17:29)
[2025-03-11] MEDS ORDERED: Ipratropium Bromide 2.5 ml Neb ONE (17:29)
[2025-03-11 17:32] LABS: #Basophils 0.17 10x3/uL (0.0-0.2); #Eosinophils 1.20 10x3/uL (0.0-0.7); #Monocytes 0.68 10x3/uL (0.11-0.59); #Neutrophils 5.90 10x3/uL (1.40-6.50); %Basophils 1.8 % (0.0-1.0); %Eosinophils 12.4 % (0.0-10.0); %Lymphocytes 17.6 % (21.0-51.0); %Monocytes 7.0 % (0.0-10.0); %Neutrophils 60.8 % (42.0-75.0); Hematocrit 39.2 % (36.0-47.0); Hemoglobin 12.6 g/dL (12.0-16.0); Mean Corpuscular Hemoglobin 28.8 pg (27.0-31.0); Mean Corpuscular Volume 89.5 fL (78.0-98.0); Platelet Count 186 10x3/uL (130-400); Red Blood Cell (RBC) Count 4.38 mill/uL (4.20-5.40); White Blood Cell (WBC) Count 9.70 10x3/uL (4.8-10.8)
[2025-03-11 17:35] LABS: Actual Bicarbonate (HCO3v) 26.5 mEq/L (22-28); Analyzer IN Cardio ER; Base Excess 0.1 mEq/L (-2.0 to +3.0); Calcium, Ionized (venous) 1.21 mmol/L (1.16-1.32); Chloride (VBG) 100 mmol/L (98-106); Hematocrit-VBG 37 % (36.0-47.0); Hemoglobin (Hb) 12.5 g/dL (11.7-16.1); Potassium (VBG) 4.48 mmol/L (3.70-5.30); Sodium 138 mmol/L (133-146)
[2025-03-11 17:42] LABS: ALT (SGPT) 23 U/L (Less than 34); AST (SGOT) 49 U/L (11-34); Albumin 3.8 g/dL (3.1-4.5); Alkaline Phosphatase 322 U/L (40-110); Anion Gap 17 mmol/L (10-20); BUN (Urea Nitrogen) 18 mg/dL (9.8-20.1); Bilirubin, Total 0.6 mg/dL (0.3-1.2); Calc. Creatinine Clearance 0 mL/min (70-130); Calcium 9.8 mg/dL (7.8-10.44); Carbon Dioxide 22 mmol/L (23-31); Chloride 102 mmol/L (98-107); Globulin 5.3 g/dL (2.4-3.5); Glucose 123 mg/dL (83-110); Magnesium 1.5 mg/dL (1.6-2.6); Potassium 5.0 mmol/L (3.5-5.1); Sodium 136 mmol/L (136-145)
[2025-03-11] MEDS ORDERED: Carvedilol 25 MG TAB ONE (18:36)
[2025-03-11 18:47] LABS: Bacteria/HPF 2+ HPF (None Seen); CAUTI Indications for Culture Fever or rigors; Glucose, Urine (Dipstick) Normal (Negative); Leukocyte 75 Leu/uL (Negative); Protein, Urine (Dipstick) 20 mg/dL (Neg-Trace); RBC/HPF None Seen HPF (0-3); Specific Gravity, Urine 1.008 (1.002-1.036)
[2025-03-11 18:50] LABS: Urine Culture Reflex Yes Yes
[2025-03-11] MEDS ORDERED: Albuterol 2.5 MG (0.5 mL) NEB ONE (20:26)
[2025-03-11] MEDS ORDERED: Furosemide 40 MG (4 mL) VIAL ONE (20:26)
[2025-03-11] MEDS ORDERED: Magnesium 2 GM/50 ML BAG (IN WATER) ONE (21:13)
[2025-03-11 22:29] VITALS: BMI 38.7
[2025-03-12] MEDS: Magnesium Oxide 400 MG TAB PO SCH (02:17)
[2025-03-12 04:52] LABS: #Basophils Less than 0.03 10x3/uL (0.0-0.2); #Eosinophils Less than 0.03 10x3/uL (0.0-0.7); #Monocytes 0.06 10x3/uL (0.11-0.59); #Neutrophils 4.32 10x3/uL (1.40-6.50); %Basophils 0.4 % (0.0-1.0); %Eosinophils 0.2 % (0.0-10.0); %Lymphocytes 12.5 % (21.0-51.0); %Monocytes 1.2 % (0.0-10.0); %Neutrophils 85.3 % (42.0-75.0); Hematocrit 39.1 % (36.0-47.0); Hemoglobin 12.3 g/dL (12.0-16.0); Mean Corpuscular Hemoglobin 27.9 pg (27.0-31.0); Mean Corpuscular Volume 88.7 fL (78.0-98.0); Platelet Count 193 10x3/uL (130-400); Red Blood Cell (RBC) Count 4.41 mill/uL (4.20-5.40); White Blood Cell (WBC) Count 5.06 10x3/uL (4.8-10.8)
[2025-03-12 05:08] LABS: ALT (SGPT) 20 U/L (Less than 34); AST (SGOT) 39 U/L (11-34); Albumin 3.7 g/dL (3.1-4.5); Alkaline Phosphatase 321 U/L (40-110); Bilirubin, Direct 0.3 mg/dL (0.1-0.3); Bilirubin, Total 0.5 mg/dL (0.3-1.2)
[2025-03-12 05:15] LABS: Anion Gap 19 mmol/L (10-20); BUN (Urea Nitrogen) 19 mg/dL (9.8-20.1); Calc. Creatinine Clearance 62 mL/min (70-130); Calcium 10.1 mg/dL (7.8-10.44); Carbon Dioxide 22 mmol/L (23-31); Chloride 99 mmol/L (98-107); Glucose 150 mg/dL (83-110); Magnesium 1.9 mg/dL (1.6-2.6); Potassium 4.2 mmol/L (3.5-5.1); Sodium 136 mmol/L (136-145)
[2025-03-12] MEDS: Furosemide 20 MG (2 mL) VIAL SLOW IVP SCH ×2 (06:17→15:18)
[2025-03-12] MEDS ORDERED: Metoprolol Tartrate 5 MG (5 mL) VIAL IVP PRN (07:22)
[2025-03-12] MEDS: Electrolyte Replacement Protocol 1 EACH FS ONE (07:23)
[2025-03-12] MEDS ORDERED: Potassium Chloride 20 MEQ in Premix 1 BAG IVPB PRN (07:30)
[2025-03-12] MEDS ORDERED: PHOS-NAK 1 PKT PACK PO PRN (07:30)
[2025-03-12] MEDS: Carvedilol 25 MG TAB PO SCH (08:45)
[2025-03-12] MEDS ORDERED: Enoxaparin 40 MG (0.4 mL) SYRINGE SC SCH (09:00)
[2025-03-12] MEDS: Pantoprazole 40 MG DR.TAB PO SCH (09:13)
[2025-03-12] MEDS: Heparin 5,000 UNITS/ML VIAL SC SCH (09:13)
[2025-03-12] MEDS: Aspirin 81 mg Enteric Coated Tablet PO SCH (09:13)
[2025-03-12] MEDS: Magnesium 2 GM/50 ML(in water) 2 GM in Premix 1 BAG IVPB PRN (15:18)
[2025-03-12] MEDS: Cyclobenzaprine 10 MG TAB PO PRN (15:18)
[2025-03-12] MEDS: Ondansetron PF 4 MG/2 ML Vial IVP PRN (16:40)
[2025-03-13 04:02] LABS: Hematocrit 35.1 % (36.0-47.0); Hemoglobin 11.1 g/dL (12.0-16.0); Mean Corpuscular Hemoglobin 28.0 pg (27.0-31.0); Mean Corpuscular Volume 88.6 fL (78.0-98.0); Platelet Count 205 10x3/uL (130-400); Red Blood Cell (RBC) Count 3.96 mill/uL (4.20-5.40); White Blood Cell (WBC) Count 8.33 10x3/uL (4.8-10.8)
[2025-03-13 04:14] LABS: Anion Gap 17 mmol/L (10-20); BUN (Urea Nitrogen) 40 mg/dL (9.8-20.1); Calc. Creatinine Clearance 47 mL/min (70-130); Calcium 9.3 mg/dL (7.8-10.44); Carbon Dioxide 25 mmol/L (23-31); Chloride 92 mmol/L (98-107); Glucose 143 mg/dL (83-110); Magnesium 2.4 mg/dL (1.6-2.6); Potassium 4.2 mmol/L (3.5-5.1); Sodium 130 mmol/L (136-145)
[2025-03-13 05:01] LABS: #Basophils Less than 0.03 10x3/uL (0.0-0.2); #Eosinophils Less than 0.03 10x3/uL (0.0-0.7); #Monocytes 0.20 10x3/uL (0.11-0.59); #Neutrophils 7.59 10x3/uL (1.40-6.50); %Basophils 0.0 % (0.0-1.0); %Eosinophils 0.0 % (0.0-10.0); %Lymphocytes 6.7 % (21.0-51.0); %Monocytes 2.4 % (0.0-10.0); %Neutrophils 90.5 % (42.0-75.0)
[2025-03-13] MEDS: Furosemide 40 MG (4 mL) VIAL SLOW IVP SCH (05:23)
[2025-03-13] MEDS ORDERED: Guaifenesin DM 100-10/5 ML UDCUP PO PRN (12:40)
[2025-03-13] MEDS: Acetylcysteine 10% 100 MG/ML (30 ml) SOLN INH SCH (14:54)
[2025-03-13] MEDS: Senokot S 8.6-50 MG TAB PO SCH (21:36)
[2025-03-14 05:34] LABS: #Basophils Less than 0.03 10x3/uL (0.0-0.2); #Eosinophils Less than 0.03 10x3/uL (0.0-0.7); #Monocytes 0.14 10x3/uL (0.11-0.59); #Neutrophils 6.91 10x3/uL (1.40-6.50); %Basophils 0.0 % (0.0-1.0); %Eosinophils 0.0 % (0.0-10.0); %Lymphocytes 6.2 % (21.0-51.0); %Monocytes 1.9 % (0.0-10.0); %Neutrophils 91.5 % (42.0-75.0); Hematocrit 36.1 % (36.0-47.0); Hemoglobin 11.5 g/dL (12.0-16.0); Mean Corpuscular Hemoglobin 28.2 pg (27.0-31.0); Mean Corpuscular Volume 88.5 fL (78.0-98.0); Platelet Count 193 10x3/uL (130-400); Red Blood Cell (RBC) Count 4.08 mill/uL (4.20-5.40); White Blood Cell (WBC) Count 7.55 10x3/uL (4.8-10.8)
[2025-03-14 05:58] LABS: Anion Gap 19 mmol/L (10-20); BUN (Urea Nitrogen) 54 mg/dL (9.8-20.1); Calc. Creatinine Clearance 45 mL/min (70-130); Calcium 9.2 mg/dL (7.8-10.44); Carbon Dioxide 26 mmol/L (23-31); Chloride 94 mmol/L (98-107); Glucose 125 mg/dL (83-110); Magnesium 2.3 mg/dL (1.6-2.6); Potassium 4.1 mmol/L (3.5-5.1); Sodium 135 mmol/L (136-145)
[2025-03-14] MEDS ORDERED: Furosemide 20 MG TAB PO SCH (14:00)
[2025-03-14] MEDS: Furosemide 40 MG TAB PO SCH (15:05)
[2025-03-15 09:08] LABS: #Basophils Less than 0.03 10x3/uL (0.0-0.2); #Eosinophils Less than 0.03 10x3/uL (0.0-0.7); #Monocytes 0.22 10x3/uL (0.11-0.59); #Neutrophils 6.80 10x3/uL (1.40-6.50); %Basophils 0.0 % (0.0-1.0); %Eosinophils 0.0 % (0.0-10.0); %Lymphocytes 7.2 % (21.0-51.0); %Monocytes 2.9 % (0.0-10.0); %Neutrophils 89.5 % (42.0-75.0); Hematocrit 40.0 % (36.0-47.0); Hemoglobin 13.0 g/dL (12.0-16.0); Mean Corpuscular Hemoglobin 28.0 pg (27.0-31.0); Mean Corpuscular Volume 86.2 fL (78.0-98.0); Platelet Count 204 10x3/uL (130-400); Red Blood Cell (RBC) Count 4.64 mill/uL (4.20-5.40); White Blood Cell (WBC) Count 7.60 10x3/uL (4.8-10.8)
[2025-03-15 09:21] LABS: ALT (SGPT) 18 U/L (Less than 34); AST (SGOT) 23 U/L (11-34); Albumin 3.4 g/dL (3.1-4.5); Alkaline Phosphatase 228 U/L (40-110); Anion Gap 20 mmol/L (10-20); BUN (Urea Nitrogen) 56 mg/dL (9.8-20.1); Bilirubin, Total 0.4 mg/dL (0.3-1.2); Calc. Creatinine Clearance 46 mL/min (70-130); Calcium 9.3 mg/dL (7.8-10.44); Carbon Dioxide 26 mmol/L (23-31); Chloride 96 mmol/L (98-107); Globulin 4.5 g/dL (2.4-3.5); Glucose 111 mg/dL (83-110); Magnesium 2.0 mg/dL (1.6-2.6); Potassium 3.6 mmol/L (3.5-5.1); Sodium 138 mmol/L (136-145)
[2025-03-16 04:52] LABS: #Basophils Less than 0.03 10x3/uL (0.0-0.2); #Eosinophils Less than 0.03 10x3/uL (0.0-0.7); #Monocytes 0.36 10x3/uL (0.11-0.59); #Neutrophils 5.66 10x3/uL (1.40-6.50); %Basophils 0.2 % (0.0-1.0); %Eosinophils 0.0 % (0.0-10.0); %Lymphocytes 6.6 % (21.0-51.0); %Monocytes 5.5 % (0.0-10.0); %Neutrophils 87.2 % (42.0-75.0); Hematocrit 41.7 % (36.0-47.0); Hemoglobin 13.7 g/dL (12.0-16.0); Mean Corpuscular Hemoglobin 28.4 pg (27.0-31.0); Mean Corpuscular Volume 86.3 fL (78.0-98.0); Platelet Count 189 10x3/uL (130-400); Red Blood Cell (RBC) Count 4.83 mill/uL (4.20-5.40); White Blood Cell (WBC) Count 6.49 10x3/uL (4.8-10.8)
[2025-03-16] MEDS: Acetaminophen 325 MG TAB PO PRN (13:11)
[2025-03-16] MEDS: Benzocaine/Menthol 1 LOZ LOZ PO PRN (16:44)
[2025-03-17] MEDS: Albuterol 2.5 MG (3 mL) NEB NEB PRN (02:35)
[2025-03-17 03:45] LABS: #Basophils Less than 0.03 10x3/uL (0.0-0.2); #Eosinophils Less than 0.03 10x3/uL (0.0-0.7); #Monocytes 0.62 10x3/uL (0.11-0.59); #Neutrophils 11.93 10x3/uL (1.40-6.50); %Basophils 0.1 % (0.0-1.0); %Eosinophils 0.1 % (0.0-10.0); %Lymphocytes 4.8 % (21.0-51.0); %Monocytes 4.7 % (0.0-10.0); %Neutrophils 89.8 % (42.0-75.0); Hematocrit 41.2 % (36.0-47.0); Hemoglobin 13.7 g/dL (12.0-16.0); Mean Corpuscular Hemoglobin 28.4 pg (27.0-31.0); Mean Corpuscular Volume 85.5 fL (78.0-98.0); Platelet Count 195 10x3/uL (130-400); Red Blood Cell (RBC) Count 4.82 mill/uL (4.20-5.40); White Blood Cell (WBC) Count 13.27 10x3/uL (4.8-10.8)
[2025-03-17 04:15] LABS: Anion Gap 18 mmol/L (10-20); BUN (Urea Nitrogen) 63 mg/dL (9.8-20.1); Calc. Creatinine Clearance 39 mL/min (70-130); Calcium 9.2 mg/dL (7.8-10.44); Carbon Dioxide 30 mmol/L (23-31); Chloride 92 mmol/L (98-107); Glucose 115 mg/dL (83-110); Magnesium 2.1 mg/dL (1.6-2.6); Potassium 3.3 mmol/L (3.5-5.1); Sodium 137 mmol/L (136-145)
[2025-03-17] MEDS: Dapagliflozin Propanediol 10 MG TAB PO SCH (08:23)
[2025-03-17] MEDS: Torsemide 20 MG TAB PO SCH (08:23)
[2025-03-17] MEDS: cefTRIAXone\\ROCEPHIN 2 GM in Sodium Chloride 0.9% 100 ML IVPB SCH (10:28)
[2025-03-17 16:31] VITALS: BP 122/76; TEMP 97.7
== END 2025-03-17 18:28 | disposition home health service (06) | DRG 291 ==
LOC: ERS 16:59 → ERHOLD 20:53 → PCU 03-12 00:43
PROVIDERS: ADMIT Internal Medicine; ATTEND Hospitalist
DX: I13.0 Hypertensive heart and chronic kidney disease with heart failure and stage 1 through stage 4 chronic kidney disease, or unspecified chronic kidney disease (principal); I50.33 Acute on chronic diastolic (congestive) heart failure; J96.01 Acute respiratory failure with hypoxia; J44.1 Chronic obstructive pulmonary disease with (acute) exacerbation; J45.901 Unspecified asthma with (acute) exacerbation; N17.9 Acute kidney failure, unspecified; I48.91 Unspecified atrial fibrillation; E78.5 Hyperlipidemia, unspecified; N18.30 Chronic kidney disease, stage 3 unspecified; E83.42 Hypomagnesemia; K59.00 Constipation, unspecified; I25.10 Atherosclerotic heart disease of native coronary artery without angina pectoris; Z98.890 Other specified postprocedural states; Z95.1 Presence of aortocoronary bypass graft; Z88.8 Allergy status to other drugs, medicaments and biological substances; Z86.718 Personal history of other venous thrombosis and embolism
CPT/HCPCS: 36415; 71045; 80048; 80053; 80076; 81001; 82805; 83605; 83735; 83880; 84484; 85025; 87040; 87077; 87086; 87186; 93005; 93306; 94640; 94644; 94760; 96365; 96375; J0696; J1644; J1940; J2405; J2919; J3475; J7608; J7611; J7644

== ENCOUNTER 2025-03-20 18:29 | Emergency (ER) | payer OTHER ==
[2025-03-20 19:11] LABS: #Basophils Less than 0.03 10x3/uL (0.0-0.2); #Eosinophils Less than 0.03 10x3/uL (0.0-0.7); #Monocytes 0.35 10x3/uL (0.11-0.59); #Neutrophils 10.47 10x3/uL (1.40-6.50); %Basophils 0.1 % (0.0-1.0); %Eosinophils 0.0 % (0.0-10.0); %Lymphocytes 7.5 % (21.0-51.0); %Monocytes 3.0 % (0.0-10.0); %Neutrophils 88.3 % (42.0-75.0); Hematocrit 43.5 % (36.0-47.0); Hemoglobin 14.5 g/dL (12.0-16.0); Mean Corpuscular Hemoglobin 28.3 pg (27.0-31.0); Mean Corpuscular Volume 85.0 fL (78.0-98.0); Platelet Count 193 10x3/uL (130-400); Red Blood Cell (RBC) Count 5.12 mill/uL (4.20-5.40); White Blood Cell (WBC) Count 11.85 10x3/uL (4.8-10.8)
[2025-03-20 19:20] LABS: ALT (SGPT) 24 U/L (Less than 34); AST (SGOT) 32 U/L (11-34); Albumin 3.5 g/dL (3.1-4.5); Alkaline Phosphatase 195 U/L (40-110); Anion Gap 22 mmol/L (10-20); BUN (Urea Nitrogen) 116 mg/dL (9.8-20.1); Bilirubin, Total 0.4 mg/dL (0.3-1.2); Calc. Creatinine Clearance 0 mL/min (70-130); Calcium 9.2 mg/dL (7.8-10.44); Carbon Dioxide 24 mmol/L (23-31); Chloride 88 mmol/L (98-107); Globulin 4.5 g/dL (2.4-3.5); Glucose 153 mg/dL (83-110); Magnesium 1.8 mg/dL (1.6-2.6); Potassium 4.1 mmol/L (3.5-5.1); Sodium 130 mmol/L (136-145)
== END 2025-03-20 19:55 | disposition home or self-care (01) ==
LOC: ERS 18:29
DX: N17.9 Acute kidney failure, unspecified (principal); I13.0 Hypertensive heart and chronic kidney disease with heart failure and stage 1 through stage 4 chronic kidney disease, or unspecified chronic kidney disease; N18.9 Chronic kidney disease, unspecified; I50.9 Heart failure, unspecified; I48.91 Unspecified atrial fibrillation; I25.10 Atherosclerotic heart disease of native coronary artery without angina pectoris; J45.909 Unspecified asthma, uncomplicated; Z79.82 Long term (current) use of aspirin; Z79.899 Other long term (current) drug therapy
CPT/HCPCS: 36415; 71045; 80053; 83605; 83735; 83880; 84484; 85025; 87040; 87428; 93005